=== PATIENT | female | born 1955 | race Caucasian/White ===

== ENCOUNTER → 2023-07-27 09:10 | Outpatient (REF) | payer MEDICARE, OTHER, SELFPAY ==
[2023-07-27 11:35] LABS: % Eosinophils 1.7 % (0-6); % Immature Granulocytes 0.4 % (0-0.5); % Lymphocytes 30.6 % (20.5-51.1); % Monocytes 4.8 % (1.7-9.3); % Neutrophils 61.5 % (42.2-75.2); Absolute Basophils 0.1 10^3/uL (0-0.2); Absolute Eosinophils 0.1 10^3/uL (0-0.7); Absolute Lymphocytes 2.6 10^3/uL (1.2-3.4); Absolute Monocytes 0.4 10^3/uL (0.1-0.6); Absolute Neutrophils 5.2 10^3/uL (1.4-6.5); Hematocrit 32.8 % (37.0-47.0); Hemoglobin 10.4 g/dL (12.0-16.0); Mean Corp Hgb Conc. 31.7 g/dL (33.0-37.0); Mean Corpuscular Hgb 28.1 pg (27.0-31.0); Mean Corpuscular Volume 88.6 fL (81.0-99.0); Mean Platelet Volume 10.5 fL (7.4-10.4); Nucleated Red Blood Cells % 0 %; Platelet Count 282 10^3/uL (130-400); Red Cell Dist. Width 19.9 % (11.5-14.5); White Blood Cell Count 8.4 10^3/uL (4.8-10.8)
[2023-07-27 11:48] LABS: Blood Urea Nitrogen 19 mg/dl (7-17); Calcium 8.6 mg/dl (8.4-10.2); Carbon Dioxide 24 mmol/L (22-30); Chloride 107 mmol/L (98-107); Glucose 100 mg/dl (70-99); Potassium 4.1 mmol/L (3.5-5.1); Sodium 139 mmol/L (135-145); eGFR > 60.00
== END ==
LOC: HWLAB 09:10
PROVIDERS: ATTENDING PHYSICIAN Emergency Medicine
DX: D64.9 Anemia, unspecified (principal)
CPT/HCPCS: 36415; 80048; 85025

== ENCOUNTER 2023-07-27 18:24 | Emergency (ER) | payer MEDICARE, OTHER, SELFPAY ==
[2023-07-27 18:32] VITALS: BP 139/85
[2023-07-27 19:08] LABS: % Eosinophils 2.4 % (0-6); % Immature Granulocytes 0.4 % (0-0.5); % Lymphocytes 29.9 % (20.5-51.1); % Monocytes 4.9 % (1.7-9.3); % Neutrophils 61.4 % (42.2-75.2); Absolute Basophils 0.1 10^3/uL (0-0.2); Absolute Eosinophils 0.2 10^3/uL (0-0.7); Absolute Lymphocytes 2.5 10^3/uL (1.2-3.4); Absolute Monocytes 0.4 10^3/uL (0.1-0.6); Absolute Neutrophils 5.1 10^3/uL (1.4-6.5); Hemoglobin 11.1 g/dL (12.0-16.0); Mean Corp Hgb Conc. 31.7 g/dL (33.0-37.0); Mean Corpuscular Volume 88.4 fL (81.0-99.0); Mean Platelet Volume 10.3 fL (7.4-10.4); Nucleated Red Blood Cells % 0 %; Platelet Count 293 10^3/uL (130-400); Red Blood Cell Count 3.96 10^6/uL (4.20-5.40); Red Cell Dist. Width 19.9 % (11.5-14.5); White Blood Cell Count 8.4 10^3/uL (4.8-10.8)
[2023-07-27 19:19] LABS: INR 0.93; PT 12.5 Sec (11.4-14.6)
[2023-07-27 19:50] LABS: Troponin I < 0.012 ng/ml
[2023-07-27 20:48] LABS: ALT (SGPT) 15 U/L (0-35); AST (SGOT) 19 U/L (14-36); Alkaline Phosphatase 84 U/L (38-126); Blood Urea Nitrogen 17 mg/dl (7-17); Calcium 8.6 mg/dl (8.4-10.2); Carbon Dioxide 23 mmol/L (22-30); Chloride 109 mmol/L (98-107); Glucose 119 mg/dl (70-99); Potassium 3.9 mmol/L (3.5-5.1); Sodium 140 mmol/L (135-145); Total Bilirubin 0.6 mg/dl (0.2-1.3); Total Protein 6.6 g/dl (6.3-8.2); eGFR > 60.00
[2023-07-27 22:48] VITALS: BP 143/78
--- NOTE | 2023-07-27 22:56 | ED.GENMED ---
Addendum entered and electronically signed by Kaylene Jones PA-C 07/28/23 10:48:
pt called saying th elissaaler was not covered but pharmacist said breo was
pt has appt with pcp tomorrow
encouraged to let them make the decision about theinhaler but pt was requesting the breo filled by me, i did not see this patient
because of short term f/u i felt comfortable givin gthe inhaler script but warned pt to ask her pcp.
Original Note:
History of Present Illness
<ELISHA Griffith - Last Filed: 07/27/23 23:33>
General
Chief Complaint: Cardiac Symptoms
Source: patient
Exam Limitations: none
Time Seen by Provider: 07/27/23 22:37
Nursing documentation reviewed up to this point in time: agreed with
Travel History
Have you had any contact with someone who has COVID-19?: No
Do you have any symptoms of coronavirus? Fever > 100 degrees, chills, cough, shortness of breath, sore throat, loss of taste or smell, muscle aches, or headache?: No
History of Present Illness
History of Present Illness:
This is a 67 year old female with a history of symptomatic anemia, GERD, R hip arthroplasty, and gastric erosions, who presents to the ED c/o SOB x 1.5 weeks. Pt states she was discharged from the hospital 1 week ago for which she was treated for
symptomatic anemia. Pt states the shortness of breath began soon after she was discharged. She states it is only present during exertion, specifically when she walks and she would describe it as moderate-severe in severity. She denies any shortness
of breath at rest. Pt also states she is having 'stabbing' chest pain since this morning which has been intermittent. She rates it an 8/10 in severity and has been drinking warm water to help. She denies any radiation of the pain to her arm or jaw.
Pt states she has had previous episodes of this pain in the past, usually when she is at rest, but it usually resolves on its own. Pt also adds her right hip pain is significant and is constantly present. She describes the pain as achy and it
radiates down to her knee. It has limited her mobility and she uses a walker to walk. She was taking oxycodone, which she finished 4-5 days ago, but states that did not help with her pain. She last saw her orthopedic 1 month ago and has an
appointment scheduled on 08/25/23. Pt has been taking tylenol and using lidocaine patches, but neither have helped with the pain. She denies any n/v, fever, TEIXEIRA, dizziness, lightheadedness, cough, abdominal pain, leg swelling, or reflux.
Pt denies any tobacco, alcohol, or drug use.
Past History
<ELISHA Griffith - Last Filed: 07/27/23 23:33>
Past History
ED Past Medical History: COPD, GERD, Hypercholesterolemia, Psychiatric (Anxiety, Depression) and Other (IBS, Diverticulosis, Back and neck pain, Sciatica, Chronic Bronchitis, Hemorrhoids)
ED Past Surgical History: (X 2), Gynecological (Hysterectomy) and Orthopedic (Left knee replacement, Right hip replacement); Negative Appendectomy or Cholecystectomy
Patient has exhibited threatening behavior?: No
Social History
Tobacco: Non-smoker
Alcohol: None
Drug: None
Personal:
Living: alone
Employment: Employed
Family History
Family History: Other (Mother with pancreatic cancer)
Review of Systems
<ELISHA Griffith - Last Filed: 07/27/23 23:33>
Review of Systems
Allergies reviewed?: Yes
Constitutional: Reports no symptoms; Denies fever
Respiratory: Reports trouble breathing; Denies cough
Cardiac: Reports chest pain; Denies diaphoresis
ABD/GI: Denies abdominal pain, nausea, vomiting, diarrhea or constipated
: Reports no symptoms
Musculoskeletal: Reports muscle pain and muscle stiffness; Denies edema
Skin: Reports no symptoms
Neurological: Reports no symptoms; Denies dizzy or headache
Phy Exam
<ELISHA Griffith - Last Filed: 07/27/23 23:33>
General Physical Exam
General Presentation: moderate distress
General age: appears stated age
General Skin: warm and dry
General Habitus: normal
General Mental: alert
General Hydration: appears well hydrated
ENT Exam
ENT Exam: EOMI and pharynx normal
Cardiovascular Exam
Cardiovascular Exam: regular rate/rhythm, no edema, no gallop and no murmur
Heart Sounds: normal
Pulmonary Exam
Pulmonary Exam: lungs clear, no respiratory distress, no rales, no crackles, no rhonchi, no wheezing and no cough
Oxygen Status: room air
Cough: no cough
Gastrointestinal Exam
Gastrointestinal Exam: normal bowel sounds, soft, non distended and tender (epigastric)
Neurological Exam
Neurological Exam: alert, oriented x3 and speech normal
Musculoskeletal Exam
Musculoskeletal Exam: no edema and other (R hip tenderness)
Skin Exam
Skin Exam: normal color, warm/dry and no rash
Psychiatric Exam
Psychiatric Exam: normal mood/affect
Course
<ELISHA Griffith - Last Filed: 07/27/23 23:33>
Orders/Labs/Results
Orders:
Orders
07/27/23 18:33
EKG [Electrocardiogram (*1)] Urgent
Reason for Study: Chest Pain
CR Chest - 2 Views Urgent
Comment:
Reason For Exam: chest pain
07/27/23 18:34
EKG- Treatment ONCE
07/27/23 18:50
Complete Blood Count/With Diff Urgent
Comprehensive Metabolic Panel Urgent
Prothrombin Time Urgent
Troponin I Urgent
07/27/23 23:25
D-Dimer Urgent
07/27/23 23:37
Gabapentin [Neurontin] 300 mg PO NOW STA
Oxycodone/Acetaminophen [Percocet 5/325] 1 tablet PO NOW STA
07/28/23 00:12
CT Chest Pe Study Urgent
Comment:
Reason For Exam: BOONE, elevated d-dimer
Abnormal Lab Results
07/27/23 07/27/23
18:50 23:25
RBC 3.96 L 10^6/uL
(4.20-5.40)
Hgb 11.1 L g/dL
(12.0-16.0)
Hct 35.0 L %
(37.0-47.0)
MCHC 31.7 L g/dL
(33.0-37.0)
RDW 19.9 H %
(11.5-14.5)
D-Dimer 0.97 H ug/mlFEU
(0.00-0.50)
Chloride 109 H mmol/L
(98-107)
Glucose 119 H mg/dl
(70-99)
07/27/23 18:50
07/27/23 18:50
Vital Signs
Initial and Last Documented VS:
Initial Vital Signs
Temp Pulse Resp BP Pulse Ox
98.5 F 93 17 139/85 99
07/27/23 18:32 07/27/23 18:32 07/27/23 18:32 07/27/23 18:32 07/27/23 18:32
Last Documented Vital Signs
Temp Pulse Resp BP Pulse Ox
98.5 F 70 14 142/82 95
07/27/23 18:32 07/28/23 01:00 07/28/23 01:00 07/28/23 00:00 07/28/23 01:00
<Brittany Pyle DO - Last Filed: 07/28/23 01:19>
Orders/Labs/Results
Orders:
Orders
07/27/23 18:33
EKG [Electrocardiogram (*1)] Urgent
Reason for Study: Chest Pain
CR Chest - 2 Views Urgent
Comment:
Reason For Exam: chest pain
07/27/23 18:34
EKG- Treatment ONCE
07/27/23 18:50
Complete Blood Count/With Diff Urgent
Comprehensive Metabolic Panel Urgent
Prothrombin Time Urgent
Troponin I Urgent
07/27/23 23:25
D-Dimer Urgent
07/27/23 23:37
Gabapentin [Neurontin] 300 mg PO NOW STA
Oxycodone/Acetaminophen [Percocet 5/325] 1 tablet PO NOW STA
07/28/23 00:12
CT Chest Pe Study Urgent
Comment:
Reason For Exam: BOONE, elevated d-dimer
Abnormal Lab Results
07/27/23 07/27/23
18:50 23:25
RBC 3.96 L 10^6/uL
(4.20-5.40)
Hgb 11.1 L g/dL
(12.0-16.0)
Hct 35.0 L %
(37.0-47.0)
MCHC 31.7 L g/dL
(33.0-37.0)
RDW 19.9 H %
(11.5-14.5)
D-Dimer 0.97 H ug/mlFEU
(0.00-0.50)
Chloride 109 H mmol/L
(98-107)
Glucose 119 H mg/dl
(70-99)
07/27/23 18:50
07/27/23 18:50
Vital Signs
Initial and Last Documented VS:
Initial Vital Signs
Temp Pulse Resp BP Pulse Ox
98.5 F 93 17 139/85 99
07/27/23 18:32 07/27/23 18:32 07/27/23 18:32 07/27/23 18:32 07/27/23 18:32
Last Documented Vital Signs
Temp Pulse Resp BP Pulse Ox
98.5 F 70 14 142/82 95
07/27/23 18:32 07/28/23 01:00 07/28/23 01:00 07/28/23 00:00 07/28/23 01:00
<Brittany Pyle DO - Last Filed: 07/28/23 01:19>
*Radiology
Radiology exam reviewed: radiology read reviewed
*Pulse Oximetry
Patient hypoxic: no
*EKG
Interpreted by ED Provider?: Yes
Interpretation: normal
Comparison EKG: no changes (Unchanged from previous save her sinus tachycardia has resolved. 1 unifocal PVC is new.)
Rate: normal
Rhythm: sinus
[place]: left axis deviation
Interval: normal interval
QRS Pattern: normal QRS
Ischemia: no ischemia
*Heavy Forging Machine Operator Interpretation
Rate: normal
Interpretation: normal
Rhythm: sinus
*Critical Care Note
Total Time (30-74mins, 75-104mins- exclusive of procedures): Not Applicable
ED Attending Note
<ELISHA Griffith - Last Filed: 07/27/23 23:33>
-
Portions of this chart may have been created with voice recognition software.� Occasional wrong word or��sound alike� substitutions may have occurred due to the inherent limitations of voice recognition software.
<Brittany Pyle DO - Last Filed: 07/28/23 01:19>
ED Attending Note
Patient seen and examined by attending physician: Yes
I performed the substantive portion of visit, reviewed & personally made and approve the management plan that is documented in note by myself or KATEY.: Yes
I performed a history and physical exam of patient and discussed management with resident, I reviewed resident's note and agree with documented findings and plan of care.: Yes
ED Attending Note:
This is a 67-year-old woman who resides at home. She has history of chronic right hip pain, right hip arthroplasty April 2023, lumbar spine DJD. Right hip pain has persisted despite total hip replacement in April. She follows with pain
management, Dr. Powers with next appointment scheduled for next week. She states no improvement in pain despite 2 epidural steroid injections last month. She continues to follow with orthopedics and has an appointment with August 23 for second
opinion. She had been receiving prescriptions for oxycodone as well as hydromorphone throughout April and May with last prescription for 10-day course June 21. Thereafter she had been taking a fair amount of ibuprofen for right hip pain
and was admitted to this hospital July 15 until July 18 for treatment of symptomatic anemia�acute blood loss anemia superimposed on chronic iron deficiency anemia with initial hemoglobin of 6.7. She was transfused with 2 units of packed red
blood cells and hemoglobin improved to 9.9 on day of discharge.
Upper endoscopy showed nonbleeding gastric erosions as well as hiatal hernia and was recommended twice daily Protonix as well as to avoid NSAIDs as well as aspirin.
She was evaluated by orthopedics due to ongoing persistent right hip pain and at this point it is unclear if pain is hip in nature versus referred from upper lumbar foraminal stenosis.
She was discharged on lidocaine patches as well as Tylenol and a short course of oxycodone 5 mg which she completed 4 days ago.
Patient returns tonight with complaints of persistent dyspnea on exertion, unchanged despite 2 units of packed red blood cells. She has not had a cough nor fever nor chills. She also notes intermittent sharp stabbing lower substernal chest pain
that began this morning and has been intermittent throughout the day. Chest pain is worse and only noted when she is sitting. She has no chest pain when she is up and about.
She continues to require walker for ambulation and continues with home health nursing care from [facility] along with home PT and OT.
She denies lower leg pain or swelling. She denies nausea nor vomiting, diarrhea or constipation. Denies black or tarry stools. She denies dizziness nor lightheadedness.
She is scheduled for an IV iron infusion at employment program representative office August 03.
She is requesting something for pain and inquiring if IV iron can be transfused here in the ED.
67-year-old woman appears her stated age, awake and alert, exhibits a somewhat blunted affect but overall in no apparent distress. Respirations are easy nonlabored. Vital signs within normal limits. Pulse ox 99% on room air.
HEENT: Anicteric, conjunctiva are pink.
Neck supple, nontender, no JVD.
Heart is regular rate and rhythm. No murmur no rub.
Lungs are clear to auscultation, no rales or rhonchi no wheezing. No respiratory distress.
Abdomen is soft and nontender.
Extremities: Mild tenderness about the right hip. Mildly restricted range of motion right hip related to pain. There is no crepitus, no soft tissue swelling. No tenderness to the thigh nor knee nor lower leg. Peripheral pulses are full and
equal. No peripheral edema nor calf tenderness.
Skin is warm and dry, normal color, no rash. Good turgor.
Neuro: Awake alert and oriented x 3. No focal neurodeficits.
Differential diagnosis includes symptomatic anemia, ACS, GERD, pneumonia, PE, CHF, pleural effusion.
Labs reveal improvement in hemoglobin down to 11.1, near normalized. Normal Red cell indices.
Chemistries are unremarkable.
Troponin is negative.
Chest x-ray is unremarkable showing clear lung north, normal heart size, no pneumonia nor evidence of fluid overload. No pleural effusion.
EKG shows normal sinus rhythm, left axis deviation, 1 unifocal PVC, no acute ST-T wave abnormalities. When compared to EKG from July 14, 2023, sinus tachycardia has resolved. 1 unifocal PVC is new compared to previous otherwise similar and
unchanged.
With ongoing chest pain throughout the day, unremarkable EKG and normal troponin, ACS is unlikely. It is reassuring that chest discomfort is brief in nature and only noted when she is sitting which I suspect may be GERD related, hiatal hernia
related. Will consider Carafate if chest pain returns.
Ongoing dyspnea with exertion does not appear to be symptomatic anemia as hemoglobin has improved to 11.1. With normal indices no indication for urgent/emergent IV iron.
There is still some concern for potential PE versus chronic deconditioning thus will check D-dimer.
Patient has had chronic right hip pain, follows with orthopedics as well as pain management. Although reports no improvement with narcotics she has been receiving recurrent prescriptions for narcotics.
I have recommended gabapentin but patient states this had already been tried, ineffective and was discontinued approximately 2 months ago. Nonetheless we will give a one-time dose tonight along with a one-time dose of oxycodone. Going forward
however recommend she follow-up with pain management regarding her chronic pain issues.
07/28/2023 0109 AM
D-dimer mildly elevated thus CT of the chest/PE study performed which shows no PE. No aneurysm nor dissection. There is note of moderate hiatal hernia. Cholelithiasis without cholecystitis.
Incidental 4 mm right lower lobe pulmonary nodule as well as moderate central lobar emphysema.
Patient has successfully ambulated to and from the bathroom and does note mild dyspnea but no chest pain, ambulating well without complaints of increased hip pain.
As CAT scan shows element of emphysema would recommend trial of a daily, maintenance LABA/ICS.
Patient admits to remote history of smoking.
Recommend follow-up with PCP as well as follow-up with various specialist as already scheduled.
Discharge Plan
Departure
Patient Disposition: Home (Routine Discharge)
Date of Disposition: 07/28/23
Time of Disposition: 01:14
Patient with high blood pressure during this ER visit?: No
Condition: Good
Discharge Problem:
Dyspnea on exertion, Chronic hip pain after total replacement of right hip joint, Hiatal hernia with gastroesophageal reflux
Instructions: Chronic obstructive pulmonary disease (COPD), Chronic Pain (DC), Hiatal Hernia (DC)
Prescriptions:
New
budesonide-formoterol [Symbicort] 160-4.5 mcg/actuation HFA aerosol inhaler
1 puff inhalation BID Qty: 10.2 0RF
Rx Instructions:
rinse mouth after use
No Action
clonidine HCl 0.1 MG tablet
0.1 mg PO BID
simvastatin 40 mg Tablet
40 mg PO HS
zolpidem [Ambien] 5 mg Tablet
5 mg PO HS PRN (Reason: Sleep)
Patient Comments:
07/15/2023, pt. filled this med. on 07/07/2023 for 30 tablets according to PDMP.
aripiprazole [Abilify] 5 mg Tablet
5 mg PO DAILY
magnesium hydroxide [Milk of Magnesia] 400 mg/5 mL Suspension
30 ml PO DAILY PRN (Reason: constipation)
acetaminophen [Pain Relief ES (acetaminophen)] 500 mg Tablet
1,000 mg PO TID Qty: 90 0RF
lidocaine 4 % Adhesive Patch,Medicated
1 patch topical DAILY Qty: 10 0RF
oxycodone 5 mg Tablet
5 mg PO Q4HPRN PRN (Reason: moderate pain) Qty: 20 0RF
polyethylene glycol 3350 17 gram/dose powder
17 g PO DAILY Qty: 510 0RF
pantoprazole 40 MG tablet,delayed release (DR/EC)
40 mg PO BID Qty: 60 0RF
Referrals:
Giselle Swan MD [Family Provider] - Call in 1-3 days for appt
Interventions
Interventions:
*General Assessment Last Done: 07/27/23 18:33
*ED COVID-19 Vaccine History Last Done: 07/27/23 18:33
ED- Pulmonary Assessment Last Done: 07/27/23 23:29
ED- Cardiac Assessment Last Done: 07/27/23 23:29
[2023-07-27 23:00] VITALS: BP 138/87
[2023-07-27 23:47] LABS: D-Dimer 0.97 ug/mlFEU (0.00-0.50)
[2023-07-27] MEDS: NEURONTIN 300 MG PO (23:48)
[2023-07-27] MEDS: PERCOCET 5/325 1 TABLET PO (23:48)
[2023-07-28] VITALS: BP 142/82
[2023-07-28 01:14] VITALS: BP 147/98
== END 2023-07-28 01:22 | disposition home or self-care (01) ==
LOC: EMR 18:24
PROVIDERS: Emergency Medicine; EMERGENCY PHYSICIAN Emergency Medicine; FAMILY PHYSICIAN Emergency Medicine
DX: R06.09 Other forms of dyspnea (principal); R91.1 Solitary pulmonary nodule; K21.9 Gastro-esophageal reflux disease without esophagitis; K44.9 Diaphragmatic hernia without obstruction or gangrene; J44.9 Chronic obstructive pulmonary disease, unspecified; G89.29 Other chronic pain; Z96.641 Presence of right artificial hip joint
CPT/HCPCS: 99285; 71046; 71275; 80048; 80053; 84484; 85025; 85379; 85610; 93005; Q9967

== ENCOUNTER → 2023-08-10 14:26 | Outpatient (REF) | payer MEDICARE, OTHER, SELFPAY ==
[2023-08-10 14:36] LABS: % Basophils 0.7 % (0-2); % Eosinophils 2.8 % (0-6); % Immature Granulocytes 0.1 % (0-0.5); % Lymphocytes 18.6 % (20.5-51.1); % Monocytes 4.8 % (1.7-9.3); Absolute Basophils 0.1 10^3/uL (0-0.2); Absolute Eosinophils 0.3 10^3/uL (0-0.7); Absolute Lymphocytes 1.7 10^3/uL (1.2-3.4); Absolute Monocytes 0.4 10^3/uL (0.1-0.6); Absolute Neutrophils 6.6 10^3/uL (1.4-6.5); Hematocrit 33.2 % (37.0-47.0); Hemoglobin 10.5 g/dL (12.0-16.0); Mean Corp Hgb Conc. 31.6 g/dL (33.0-37.0); Mean Corpuscular Volume 88.5 fL (81.0-99.0); Mean Platelet Volume 9.8 fL (7.4-10.4); Platelet Count 303 10^3/uL (130-400); Red Blood Cell Count 3.75 10^6/uL (4.20-5.40); Red Cell Dist. Width 19.2 % (11.5-14.5)
== END ==
LOC: OIDL 14:26
PROVIDERS: ATTENDING PHYSICIAN Internal Medicine Hematology & Oncology
DX: D50.9 Iron deficiency anemia, unspecified (principal)
CPT/HCPCS: 85025

== ENCOUNTER → 2023-08-19 07:13 | Outpatient (REF) | payer MEDICARE, OTHER, SELFPAY | LOC: MRI 07:13 | PROVIDERS: ATTENDING PHYSICIAN Physical Medicine & Rehabilitation; FAMILY PHYSICIAN Emergency Medicine | DX: M54.16 Radiculopathy, lumbar region (principal); M25.551 Pain in right hip; Z96.641 Presence of right artificial hip joint | CPT/HCPCS: 73721 ==

== ENCOUNTER → 2023-08-31 12:06 | Outpatient (REF) | payer MEDICARE, OTHER, SELFPAY ==
[2023-08-31 16:38] LABS: % Basophils 0.7 % (0-2); % Eosinophils 0.5 % (0-6); % Immature Granulocytes 0.4 % (0-0.5); % Lymphocytes 13.2 % (20.5-51.1); % Monocytes 3.7 % (1.7-9.3); % Neutrophils 81.5 % (42.2-75.2); Absolute Basophils 0.1 10^3/uL (0-0.2); Absolute Lymphocytes 1.1 10^3/uL (1.2-3.4); Absolute Monocytes 0.3 10^3/uL (0.1-0.6); Absolute Neutrophils 6.6 10^3/uL (1.4-6.5); Hematocrit 37.3 % (37.0-47.0); Hemoglobin 12.2 g/dL (12.0-16.0); Mean Corp Hgb Conc. 32.7 g/dL (33.0-37.0); Mean Corpuscular Hgb 28.9 pg (27.0-31.0); Mean Corpuscular Volume 88.4 fL (81.0-99.0); Mean Platelet Volume 10.3 fL (7.4-10.4); Nucleated Red Blood Cells % 0 %; Platelet Count 270 10^3/uL (130-400); Red Blood Cell Count 4.22 10^6/uL (4.20-5.40); Red Cell Dist. Width 19.7 % (11.5-14.5); White Blood Cell Count 8.1 10^3/uL (4.8-10.8)
[2023-08-31 16:41] LABS: Erythrocyte Sed Rate 16 mm/hour (0-20)
[2023-08-31 16:47] LABS: C-Reactive Protein < 5.00 mg/L (0.0-10.00)
== END ==
LOC: HWLAB 12:06
PROVIDERS: ATTENDING PHYSICIAN Orthopaedic Surgery Adult Reconstructive Orthopaedic Surgery; FAMILY PHYSICIAN Emergency Medicine; REFERRING PHYSICIAN Physical Medicine & Rehabilitation
DX: M25.551 Pain in right hip (principal); Z96.641 Presence of right artificial hip joint
CPT/HCPCS: 36415; 85025; 85652; 86140

== ENCOUNTER → 2023-10-07 11:59 | Outpatient (REF) | payer MEDICARE, OTHER, SELFPAY ==
[2023-10-07 15:33] LABS: % Basophils 0.6 % (0-2); % Immature Granulocytes 0.3 % (0-0.5); % Lymphocytes 21.8 % (20.5-51.1); % Monocytes 7.5 % (1.7-9.3); % Neutrophils 66.8 % (42.2-75.2); Absolute Eosinophils 0.2 10^3/uL (0-0.7); Absolute Lymphocytes 1.6 10^3/uL (1.2-3.4); Absolute Monocytes 0.5 10^3/uL (0.1-0.6); Absolute Neutrophils 4.8 10^3/uL (1.4-6.5); Hematocrit 29.9 % (37.0-47.0); Hemoglobin 9.9 g/dL (12.0-16.0); Mean Corp Hgb Conc. 33.1 g/dL (33.0-37.0); Mean Corpuscular Hgb 30.1 pg (27.0-31.0); Mean Corpuscular Volume 90.9 fL (81.0-99.0); Mean Platelet Volume 10.3 fL (7.4-10.4); Nucleated Red Blood Cells % 0 %; Platelet Count 257 10^3/uL (130-400); Red Blood Cell Count 3.29 10^6/uL (4.20-5.40); Red Cell Dist. Width 16.8 % (11.5-14.5); White Blood Cell Count 7.1 10^3/uL (4.8-10.8)
[2023-10-07 15:44] LABS: ALT (SGPT) < 10 U/L (0-35); AST (SGOT) 16 U/L (14-36); Albumin 3.7 g/dl (3.5-5.0); Alkaline Phosphatase 76 U/L (38-126); Blood Urea Nitrogen 14 mg/dl (7-17); Calcium 9.1 mg/dl (8.4-10.2); Carbon Dioxide 26 mmol/L (22-30); Chloride 104 mmol/L (98-107); Glucose 91 mg/dl (70-99); Iron 43 ug/dl (37-170); Magnesium 2.1 mg/dl (1.6-2.3); Potassium 4.5 mmol/L (3.5-5.1); Sodium 136 mmol/L (135-145); Total Bilirubin 0.7 mg/dl (0.2-1.3); Total Protein 6.2 g/dl (6.3-8.2); eGFR > 60.00
[2023-10-07 15:55] LABS: Percent Saturation 14 % (20-50); Total Iron Binding Capacity 307 ug/dl (265-497)
[2023-10-07 16:15] LABS: TSH Reflex To Free T4 1.48 uIU/ml (0.47-4.68)
[2023-10-07 16:20] LABS: Ferritin 19.1 ng/ml (11.1-264.0)
[2023-10-08 12:15] LABS: Intact PTH 49.6 pg/ml (13.6-85.8)
== END ==
LOC: HWLAB 11:59
PROVIDERS: ATTENDING PHYSICIAN Internal Medicine Hematology & Oncology; FAMILY PHYSICIAN Emergency Medicine
DX: R53.83 Other fatigue (principal); E83.42 Hypomagnesemia; E83.51 Hypocalcemia; E87.6 Hypokalemia; D64.9 Anemia, unspecified; M25.551 Pain in right hip; K25.3 Acute gastric ulcer without hemorrhage or perforation; D50.9 Iron deficiency anemia, unspecified; G47.00 Insomnia, unspecified
CPT/HCPCS: 36415; 80053; 82306; 82728; 83540; 83550; 83735; 83970; 84155; 84165; 84443; 85025

== ENCOUNTER → 2023-10-13 13:36 | Outpatient (REF) | payer MEDICARE, OTHER, SELFPAY | LOC: HWRAD 13:36 | PROVIDERS: ATTENDING PHYSICIAN Psychiatry & Neurology Neurology; FAMILY PHYSICIAN Emergency Medicine | DX: R60.0 Localized edema (principal) | CPT/HCPCS: 93971 ==

== ENCOUNTER → 2023-10-20 14:18 | Outpatient (REF) | payer MEDICARE, OTHER, SELFPAY ==
[2023-10-20 14:21] LABS: % Basophils 0.6 % (0-2); % Eosinophils 1.7 % (0-6); % Immature Granulocytes 0.3 % (0-0.5); % Lymphocytes 21.8 % (20.5-51.1); % Neutrophils 69.6 % (42.2-75.2); Absolute Eosinophils 0.1 10^3/uL (0-0.7); Absolute Lymphocytes 1.5 10^3/uL (1.2-3.4); Absolute Monocytes 0.4 10^3/uL (0.1-0.6); Absolute Neutrophils 4.9 10^3/uL (1.4-6.5); Hematocrit 35.6 % (37.0-47.0); Hemoglobin 11.5 g/dL (12.0-16.0); Mean Corp Hgb Conc. 32.3 g/dL (33.0-37.0); Mean Corpuscular Hgb 29.3 pg (27.0-31.0); Mean Corpuscular Volume 90.6 fL (81.0-99.0); Mean Platelet Volume 9.7 fL (7.4-10.4); Platelet Count 320 10^3/uL (130-400); Red Blood Cell Count 3.93 10^6/uL (4.20-5.40); Red Cell Dist. Width 15.6 % (11.5-14.5)
[2023-10-20 15:21] LABS: Vitamin D, 25-OH*** 29.2 ng/mL (30-80)
== END ==
LOC: OIDL 14:18
PROVIDERS: ATTENDING PHYSICIAN Internal Medicine Hematology & Oncology
DX: D50.9 Iron deficiency anemia, unspecified (principal); E55.9 Vitamin D deficiency, unspecified
CPT/HCPCS: 82306; 85025

== ENCOUNTER → 2023-10-27 15:53 | Outpatient (REF) | payer MEDICARE, OTHER, SELFPAY ==
[2023-10-27 14:59] LABS: % Basophils 0.6 % (0-2); % Eosinophils 1.6 % (0-6); % Lymphocytes 17.7 % (20.5-51.1); % Monocytes 5.4 % (1.7-9.3); % Neutrophils 74.7 % (42.2-75.2); Absolute Basophils 0.1 10^3/uL (0-0.2); Absolute Eosinophils 0.1 10^3/uL (0-0.7); Absolute Lymphocytes 1.4 10^3/uL (1.2-3.4); Absolute Monocytes 0.4 10^3/uL (0.1-0.6); Absolute Neutrophils 5.8 10^3/uL (1.4-6.5); Hematocrit 36.2 % (37.0-47.0); Hemoglobin 11.9 g/dL (12.0-16.0); Mean Corp Hgb Conc. 32.9 g/dL (33.0-37.0); Mean Corpuscular Hgb 30.2 pg (27.0-31.0); Mean Corpuscular Volume 91.9 fL (81.0-99.0); Mean Platelet Volume 9.9 fL (7.4-10.4); Platelet Count 283 10^3/uL (130-400); Red Blood Cell Count 3.94 10^6/uL (4.20-5.40); Red Cell Dist. Width 16.6 % (11.5-14.5); White Blood Cell Count 7.7 10^3/uL (4.8-10.8)
[2023-10-27 15:28] LABS: Phosphorus 5.1 mg/dl (2.5-4.5)
== END ==
LOC: OIDL 15:53
PROVIDERS: ATTENDING PHYSICIAN Internal Medicine Hematology & Oncology
DX: D50.9 Iron deficiency anemia, unspecified (principal)
CPT/HCPCS: 84100; 85025

== ENCOUNTER → 2023-11-10 10:37 | Outpatient (REF) | payer MEDICARE, OTHER, SELFPAY | LOC: PAVMRI 10:37 | PROVIDERS: ATTENDING PHYSICIAN Psychiatry & Neurology Neurology; FAMILY PHYSICIAN Emergency Medicine | DX: M54.10 Radiculopathy, site unspecified (principal) | CPT/HCPCS: 72158; A9575 ==

== ENCOUNTER → 2023-11-23 06:25 | Day surgery (SDC) | payer MEDICARE, OTHER, SELFPAY | LOC: GI 06:25 | PROVIDERS: ATTENDING PHYSICIAN Internal Medicine Gastroenterology | DX: K25.0 Acute gastric ulcer with hemorrhage (principal); K21.00 Gastro-esophageal reflux disease with esophagitis, without bleeding; K44.9 Diaphragmatic hernia without obstruction or gangrene; K31.89 Other diseases of stomach and duodenum; D50.9 Iron deficiency anemia, unspecified; R12 Heartburn | CPT/HCPCS: 43239; 88305; 88342 ==

== ENCOUNTER → 2023-12-09 11:15 | Outpatient (REF) | payer MEDICARE, OTHER, SELFPAY ==
[2023-12-09 16:27] LABS: % Basophils 0.5 % (0-2); % Eosinophils 1.8 % (0-6); % Immature Granulocytes 0.3 % (0-0.5); % Lymphocytes 18.2 % (20.5-51.1); % Monocytes 5.4 % (1.7-9.3); % Neutrophils 73.8 % (42.2-75.2); Absolute Eosinophils 0.1 10^3/uL (0-0.7); Absolute Lymphocytes 1.4 10^3/uL (1.2-3.4); Absolute Monocytes 0.4 10^3/uL (0.1-0.6); Absolute Neutrophils 5.8 10^3/uL (1.4-6.5); Hematocrit 41.1 % (37.0-47.0); Hemoglobin 14.1 g/dL (12.0-16.0); Mean Corp Hgb Conc. 34.3 g/dL (33.0-37.0); Mean Corpuscular Hgb 31.6 pg (27.0-31.0); Mean Corpuscular Volume 92.2 fL (81.0-99.0); Mean Platelet Volume 10.2 fL (7.4-10.4); Nucleated Red Blood Cells % 0 %; Platelet Count 216 10^3/uL (130-400); Red Blood Cell Count 4.46 10^6/uL (4.20-5.40); Red Cell Dist. Width 15.5 % (11.5-14.5); White Blood Cell Count 7.8 10^3/uL (4.8-10.8)
[2023-12-09 16:36] LABS: Iron 95 ug/dl (37-170)
[2023-12-09 16:46] LABS: Percent Saturation 35 % (20-50); Total Iron Binding Capacity 267 ug/dl (265-497)
== END ==
LOC: HWLAB 11:15
PROVIDERS: ATTENDING PHYSICIAN Internal Medicine Hematology & Oncology; FAMILY PHYSICIAN Emergency Medicine
DX: D50.9 Iron deficiency anemia, unspecified (principal); K25.3 Acute gastric ulcer without hemorrhage or perforation; M25.551 Pain in right hip; D64.9 Anemia, unspecified; E55.9 Vitamin D deficiency, unspecified
CPT/HCPCS: 36415; 82728; 83540; 83550; 85025

== ENCOUNTER → 2023-12-20 14:37 | Outpatient (REF) | payer MEDICARE, OTHER, SELFPAY | LOC: PAVMRI 14:37 | PROVIDERS: ATTENDING PHYSICIAN Orthopaedic Surgery Adult Reconstructive Orthopaedic Surgery; FAMILY PHYSICIAN Emergency Medicine | DX: Z96.641 Presence of right artificial hip joint (principal) | CPT/HCPCS: 73721 ==

== ENCOUNTER → 2024-02-14 10:46 | Outpatient (REF) | payer MEDICARE, OTHER, SELFPAY ==
[2024-02-14 15:29] LABS: % Basophils 0.7 % (0-2); % Eosinophils 1.1 % (0-6); % Immature Granulocytes 0.5 % (0-0.5); % Lymphocytes 17.7 % (20.5-51.1); % Monocytes 5.5 % (1.7-9.3); % Neutrophils 74.5 % (42.2-75.2); Absolute Basophils 0.1 10^3/uL (0-0.2); Absolute Eosinophils 0.1 10^3/uL (0-0.7); Absolute Lymphocytes 1.5 10^3/uL (1.2-3.4); Absolute Monocytes 0.5 10^3/uL (0.1-0.6); Absolute Neutrophils 6.1 10^3/uL (1.4-6.5); Hematocrit 37.2 % (37.0-47.0); Hemoglobin 13.1 g/dL (12.0-16.0); Mean Corp Hgb Conc. 35.2 g/dL (33.0-37.0); Mean Corpuscular Hgb 33.2 pg (27.0-31.0); Mean Corpuscular Volume 94.4 fL (81.0-99.0); Mean Platelet Volume 10.3 fL (7.4-10.4); Nucleated Red Blood Cells % 0 %; Platelet Count 236 10^3/uL (130-400); Red Blood Cell Count 3.94 10^6/uL (4.20-5.40); Red Cell Dist. Width 15.1 % (11.5-14.5); White Blood Cell Count 8.2 10^3/uL (4.8-10.8)
[2024-02-14 15:41] LABS: Erythrocyte Sed Rate 26 mm/hour (0-20)
== END ==
LOC: HWLAB 10:46
PROVIDERS: ATTENDING PHYSICIAN Orthopaedic Surgery; FAMILY PHYSICIAN Emergency Medicine
DX: M25.551 Pain in right hip (principal)
CPT/HCPCS: 36415; 85025; 85652; 86140

== ENCOUNTER → 2024-02-16 13:55 | Outpatient (REF) | payer MEDICARE, OTHER, SELFPAY ==
[2024-02-16 14:23] VITALS: BP 106/78; BP_SYST 77
[2024-02-16 17:50] LABS: Body Fluid Mononuclear 94 %; Body Fluid Polymorphonuclear 6 %; Body Fluid WBC 59 /CUMM
[2024-02-16 17:52] LABS: Body Fluid Second Tech FB
== END ==
LOC: RADI 13:55
PROVIDERS: ATTENDING PHYSICIAN Orthopaedic Surgery; FAMILY PHYSICIAN Emergency Medicine
DX: M25.551 Pain in right hip (principal); G89.29 Other chronic pain
CPT/HCPCS: 20610; 77002; 89051

== ENCOUNTER 2024-02-21 16:01 | Emergency (ER) | payer MEDICARE, OTHER, SELFPAY ==
[2024-02-21 16:07] VITALS: BP 170/92
--- NOTE | 2024-02-21 17:00 | ED.GENMED ---
History of Present Illness
General
Chief Complaint: Breathing Problem
Source: patient
Exam Limitations: none
Time Seen by Provider: 02/21/24 16:42
Nursing documentation reviewed up to this point in time: agreed with
History of Present Illness
History of Present Illness:
68-year-old female with past medical history of GERD anxiety depression presenting to the emergency department with concerns of being COVID-positive for the past 3 days with mild upper respiratory congestion cough and shortness of breath starting
Tuesday, 3 days ago. Some ongoing symptoms today felt some mild shortness of breath today as well. Denies any chest pain nausea vomiting or fevers today.
Past History
Past History
ED Past Medical History: COPD, GERD, Hypercholesterolemia, Psychiatric (Anxiety, Depression) and Other (IBS, Diverticulosis, Back and neck pain, Sciatica, Chronic Bronchitis, Hemorrhoids)
ED Past Surgical History: (X 2), Gynecological (Hysterectomy) and Orthopedic (Left knee replacement, Right hip replacement); Negative Appendectomy or Cholecystectomy
Patient has exhibited threatening behavior?: No
Social History
Tobacco: Non-smoker
Alcohol: None
Drug: None
Personal:
Living: alone
Employment: Employed
Family History
Family History: Other (Mother with pancreatic cancer)
Review of Systems
Review of Systems
Allergies reviewed?: Yes
All Other Systems: ROS reviewed and negative except as documented in HPI and ROS
Phy Exam
Physical Exam
Physical Exam:
GENERAL: Alert , in no apparent distress
EYE: pupils equal and reactive
NECK: Supple, no significant adenopathy.
ENT: o/p clr, mmm.
CARDIAC: Regular rate and rhythm .
LUNGS: Clear breath sounds bilaterally, no acute respiratory distress, no wheezes/rales/rhonchi
ABDOMEN: Soft, without focal tenderness, no r/g, no cvat
NEUROLOGICAL: Alert and oriented, no focal neuro deficits
SKIN: Warm and dry, skin intact.
MUSCULOSKELETAL: No edema, well perfused.
PSYCH: Normal and appropriate interaction.
Scores
Heart Failure Risk
Heart Failure Risk Score: Not Applicable
Course
Orders/Labs/Results
Orders:
Orders
02/21/24 16:10
CR Chest - 2 Views Urgent
Comment:
Reason For Exam: cough/congestion
02/21/24 17:07
CBC/With Diff [Complete Blood Count/With Diff] Urgent
CMP [Comprehensive Metabolic Panel] Urgent
Abnormal Lab Results
02/21/24
17:07
RBC 4.11 L 10^6/uL
(4.20-5.40)
MCH 32.4 H pg
(27.0-31.0)
RDW 14.6 H %
(11.5-14.5)
Glucose 105 H mg/dl
(70-99)
02/21/24 17:07
02/21/24 17:07
Vital Signs
Initial and Last Documented VS:
Initial Vital Signs
Temp Pulse Resp BP Pulse Ox
98.3 F 87 18 170/92 95
02/21/24 16:07 02/21/24 16:07 02/21/24 16:07 02/21/24 16:07 02/21/24 16:07
Last Documented Vital Signs
Temp Pulse Resp BP Pulse Ox
98.3 F 74 18 170/92 95
02/21/24 16:07 02/21/24 17:10 02/21/24 16:07 02/21/24 16:07 02/21/24 17:11
MDM/Problems Addressed
MDM/Problems Addressed:
68-year-old female well-appearing on exam diagnosed with COVID 3 days ago also mild shortness of breath today. No headache chest. Upon arrival blood pressure elevated otherwise vital signs are normal. Lungs are clear. Chest x-ray without signs
of pneumonia. The patient does claims that she had previous anemia issues labs were obtained without acute abnormalities. Patient generally well-appearing throughout ER stay stable for outpatient management return precautions given.
*Critical Care Note
Total Time (30-74mins, 75-104mins- exclusive of procedures): Not Applicable
ED Attending Note
-
Portions of this chart may have been created with voice recognition software.� Occasional wrong word or��sound alike� substitutions may have occurred due to the inherent limitations of voice recognition software.
Discharge Plan
Departure
Patient Disposition: Home (Routine Discharge)
Date of Disposition: 02/21/24
Time of Disposition: 18:21
Patient with high blood pressure during this ER visit?: No
Condition: Good
Covid-19: Not Applicable
Discharge Problem:
COVID-19
Instructions: COVID-19 ED
Prescriptions:
No Action
clonidine HCl 0.1 MG tablet
0.1 mg PO BID
simvastatin 40 mg Tablet
40 mg PO HS
zolpidem [Ambien] 5 mg Tablet
5 mg PO HS PRN (Reason: Sleep)
Patient Comments:
07/15/2023, pt. filled this med. on 07/07/2023 for 30 tablets according to PDMP.
aripiprazole [Abilify] 5 mg Tablet
5 mg PO DAILY
magnesium hydroxide [Milk of Magnesia] 400 mg/5 mL Suspension
30 ml PO DAILY PRN (Reason: constipation)
acetaminophen [Pain Relief ES (acetaminophen)] 500 mg Tablet
1,000 mg PO TID Qty: 90 0RF
lidocaine 4 % Adhesive Patch,Medicated
1 patch topical DAILY Qty: 10 0RF
oxycodone 5 mg Tablet
5 mg PO Q4HPRN PRN (Reason: moderate pain) Qty: 20 0RF
polyethylene glycol 3350 17 gram/dose powder
17 g PO DAILY Qty: 510 0RF
pantoprazole 40 MG tablet,delayed release (DR/EC)
40 mg PO BID Qty: 60 0RF
budesonide-formoterol [Symbicort] 160-4.5 mcg/actuation HFA aerosol inhaler
1 puff inhalation BID Qty: 10.2 0RF
Rx Instructions:
rinse mouth after use
fluticasone furoate-vilanterol [Breo Ellipta] 100-25 mcg/dose blister with device
1 inh inhalation DAILY Qty: 60 0RF
Referrals:
Giselle Swan MD [Family Provider] -
Activity Restrictions/Additional Instructions:
You came to the emergency department today with concerns of shortness of breath associated with COVID. Here get a normal chest x-ray and labs. Please follow-up closely as an outpatient and otherwise hopefully symptoms will improve over the next
few days. Return to the emergency department any worsening, new or concerning symptoms.
Interventions
Interventions:
*Risk Screen - Suicide Last Done: 02/21/24 16:07
*General Assessment Last Done: 02/21/24 16:07
*Neglect/Abuse Screening Last Done: 02/21/24 16:07
ED- Fall Risk Assessment Last Done: 02/21/24 17:11
*ED COVID-19 Vaccine History Last Done: 02/21/24 17:11
ED- Cardiac Assessment Last Done: 02/21/24 17:11
ED- Pulmonary Assessment Last Done: 02/21/24 17:11
Discharge Date and Time
Print Language: [id number]
[2024-02-21 17:09] VITALS: BMI 31.9
[2024-02-21 17:15] LABS: % Basophils 0.6 % (0-2); % Eosinophils 4.2 % (0-6); % Immature Granulocytes 0.2 % (0-0.5); % Monocytes 7.1 % (1.7-9.3); % Neutrophils 56.9 % (42.2-75.2); Absolute Eosinophils 0.3 10^3/uL (0-0.7); Absolute Monocytes 0.5 10^3/uL (0.1-0.6); Absolute Neutrophils 3.8 10^3/uL (1.4-6.5); Hematocrit 38.3 % (37.0-47.0); Hemoglobin 13.3 g/dL (12.0-16.0); Mean Corp Hgb Conc. 34.7 g/dL (33.0-37.0); Mean Corpuscular Hgb 32.4 pg (27.0-31.0); Mean Corpuscular Volume 93.2 fL (81.0-99.0); Mean Platelet Volume 9.5 fL (7.4-10.4); Nucleated Red Blood Cells % 0 %; Platelet Count 277 10^3/uL (130-400); Red Blood Cell Count 4.11 10^6/uL (4.20-5.40); Red Cell Dist. Width 14.6 % (11.5-14.5); White Blood Cell Count 6.6 10^3/uL (4.8-10.8)
[2024-02-21 17:28] LABS: ALT (SGPT) 14 U/L (0-35); AST (SGOT) 23 U/L (14-36); Albumin 4.3 g/dl (3.5-5.0); Alkaline Phosphatase 75 U/L (38-126); Blood Urea Nitrogen 14 mg/dl (7-17); Calcium 9.9 mg/dl (8.4-10.2); Carbon Dioxide 27 mmol/L (22-30); Chloride 105 mmol/L (98-107); Estimated Creatinine Clearance 84 ml/min; Glucose 105 mg/dl (70-99); Sodium 142 mmol/L (135-145); Total Bilirubin 0.8 mg/dl (0.2-1.3); Total Protein 6.7 g/dl (6.3-8.2); eGFR > 60.00
== END 2024-02-21 18:39 | disposition home or self-care (01) ==
LOC: EMR 16:01
PROVIDERS: Physician Assistant; EMERGENCY PHYSICIAN Student in an Organized Health Care Education/Training Program; FAMILY PHYSICIAN Emergency Medicine
DX: U07.1 COVID-19 (principal); F41.9 Anxiety disorder, unspecified; F32.A Depression, unspecified; K21.9 Gastro-esophageal reflux disease without esophagitis; J44.9 Chronic obstructive pulmonary disease, unspecified; E78.00 Pure hypercholesterolemia, unspecified; K58.9 Irritable bowel syndrome, unspecified; K57.90 Diverticulosis of intestine, part unspecified, without perforation or abscess without bleeding; M54.40 Lumbago with sciatica, unspecified side; Z96.652 Presence of left artificial knee joint; Z96.641 Presence of right artificial hip joint; Z88.8 Allergy status to other drugs, medicaments and biological substances
CPT/HCPCS: 99283; 71046; 80053; 85025

== ENCOUNTER → 2024-04-05 11:47 | Outpatient (REF) | payer MEDICARE, OTHER, SELFPAY ==
[2024-04-05 15:21] LABS: ALT (SGPT) 16 U/L (0-35); AST (SGOT) 20 U/L (14-36); Albumin 4.3 g/dl (3.5-5.0); Alkaline Phosphatase 68 U/L (38-126); Blood Urea Nitrogen 20 mg/dl (7-17); Calcium 9.2 mg/dl (8.4-10.2); Carbon Dioxide 29 mmol/L (22-30); Chloride 104 mmol/L (98-107); Direct Bilirubin 0.2 mg/dl (0.0-0.4); Glucose 95 mg/dl (70-99); Lipase 101 U/L (23-300); Potassium 4.5 mmol/L (3.5-5.1); Sodium 142 mmol/L (135-145); Total Bilirubin 0.7 mg/dl (0.2-1.3); eGFR > 60.00
[2024-04-05 15:31] LABS: Total Protein 6.8 g/dl (6.3-8.2)
== END ==
LOC: HWLAB 11:47
PROVIDERS: ATTENDING PHYSICIAN Internal Medicine Gastroenterology; FAMILY PHYSICIAN Emergency Medicine
DX: R10.13 Epigastric pain (principal)
CPT/HCPCS: 36415; 80048; 80076; 83690

== ENCOUNTER 2024-04-23 15:15 | Inpatient (IN) | payer MEDICARE, OTHER, SELFPAY ==
[2024-04-23] VITALS (7 sets, daily range): BP systolic 92–167; BP diastolic 56–105; BMI 32.9; BMI 32.3
[2024-04-23 12:32] LABS: % Basophils 0.5 % (0-2); % Eosinophils 2.3 % (0-6); % Immature Granulocytes 0.5 % (0-0.5); % Lymphocytes 21.8 % (20.5-51.1); % Monocytes 6.1 % (1.7-9.3); % Neutrophils 68.8 % (42.2-75.2); Absolute Eosinophils 0.2 10^3/uL (0-0.7); Absolute Lymphocytes 1.4 10^3/uL (1.2-3.4); Absolute Monocytes 0.4 10^3/uL (0.1-0.6); Absolute Neutrophils 4.4 10^3/uL (1.4-6.5); Hematocrit 28.6 % (37.0-47.0); Hemoglobin 9.9 g/dL (12.0-16.0); Mean Corp Hgb Conc. 34.6 g/dL (33.0-37.0); Mean Corpuscular Hgb 32.2 pg (27.0-31.0); Mean Corpuscular Volume 93.2 fL (81.0-99.0); Mean Platelet Volume 9.8 fL (7.4-10.4); Nucleated Red Blood Cells % 0 %; Platelet Count 220 10^3/uL (130-400); Red Blood Cell Count 3.07 10^6/uL (4.20-5.40); Red Cell Dist. Width 15.3 % (11.5-14.5); White Blood Cell Count 6.4 10^3/uL (4.8-10.8)
[2024-04-23 12:44] LABS: ALT (SGPT) 15 U/L (0-35); AST (SGOT) 23 U/L (14-36); Albumin 3.8 g/dl (3.5-5.0); Alkaline Phosphatase 62 U/L (38-126); Blood Urea Nitrogen 14 mg/dl (7-17); Carbon Dioxide 24 mmol/L (22-30); Chloride 105 mmol/L (98-107); Estimated Creatinine Clearance 86 ml/min; Glucose 106 mg/dl (70-99); Lipase 71 U/L (23-300); Potassium 3.8 mmol/L (3.5-5.1); Sodium 141 mmol/L (135-145); Total Bilirubin 0.6 mg/dl (0.2-1.3); Total Protein 6.1 g/dl (6.3-8.2); eGFR > 60.00
[2024-04-23] MEDS: PROTONIX IV 40 MG IV ×2 (14:24→20:10)
--- NOTE | 2024-04-23 14:24 | ED.GENMED ---
History of Present Illness
General
Chief Complaint: Abdominal Symptoms
Time Seen by Provider: 04/23/24 12:00
History of Present Illness
History of Present Illness:
68-year-old female presents to the emergency department for evaluation of generalized fatigue and exertional shortness of breath, she also notes black stools for the past several days. She has a history of peptic ulcer disease and last required
blood transfusions earlier this year due to iron deficiency/blood loss anemia. She does not take any antiplatelets or anticoagulants. She has been compliant with her twice daily PPIs. She also notes having intractable right-sided abdominal pain
radiating toward the back for the past 3 weeks worse after food intake. She is following with her GI team and has known cholelithiasis. No fevers or chills
Past History
Past History
ED Past Medical History: COPD, GERD, Hypercholesterolemia, Psychiatric (Anxiety, Depression) and Other (IBS, Diverticulosis, Back and neck pain, Sciatica, Chronic Bronchitis, Hemorrhoids)
ED Past Surgical History: (X 2), Gynecological (Hysterectomy) and Orthopedic (Left knee replacement, Right hip replacement); Negative Appendectomy or Cholecystectomy
Patient has exhibited threatening behavior?: No
Social History
Tobacco: Non-smoker
Alcohol: None
Drug: None
Personal:
Living: alone
Employment: Employed
Family History
Family History: Other (Mother with pancreatic cancer)
Review of Systems
Review of Systems
Allergies reviewed?: Yes
All Other Systems: ROS reviewed and negative except as documented in HPI and ROS
Phy Exam
Physical Exam
Physical Exam:
GEN: Well appearing, NAD, WDWN
HEENT: Oral mucosa moist, no scleral icterus
Cardiac: Regular rate and rhythm, no murmur
Lung: No respiratory distress, no tachypnea
Abdomen: Soft, marked right upper quadrant tenderness with equivocal Melgar sign, no rigidity
Rectal: Patient declined
MSK: No gross deformity or injuries
Skin: Good color, no pallor or jaundice, no rashes
Neuro: AO x3, moves all extremities freely
Psych: Calm, cooperative
Course
Orders/Labs/Results
Orders:
Orders
04/23/24 12:07
US Abdomen Complete/Upper Urgent
Comment:
Reason For Exam: RUQ pain
04/23/24 12:23
Complete Blood Count/With Diff Urgent
Comprehensive Metabolic Panel Urgent
Lipase Urgent
04/23/24 13:46
Pantoprazole [Protonix IV] 40 mg IV NOW STA
04/23/24 14:03
Type+Screen Urgent
BBK Wristband Number:
04/23/24 14:49
Admit/Transfer Patient As Directed
Co-Sign Provider:
Level of Care: Inpatient admission
Assign to:: Telemetry
Physician / Group: lizy
Diagnosis: peptic ulcer, anemia
Reason for Telemetry: Arrhythmia
Date to Stop Telemetry: 04/26/24
Time to Stop Telemetry: 11:00
Reason for Hospitalization: peptic ulcer, anemia
Expected length of stay greater than two midnights?: Yes
ELOS- Estimated Length of Stay in days: 2
I certify the patient meets the requirements for IP care: Yes
04/23/24 14:50
Code Status As Directed
Resuscitation Status: Do not resuscitate
Reached after discussion with pt or family/Healthcare POA: Yes
PRN Pain Medication Management As Directed
May give lesser potent ordered pain med per pt: Yes
preference::
Protocol:: Medication orders for pain may be administered in a
manner that supports deferring to patient preference
when the pt is:
- Requesting an ordered lesser potent pain medication.
Least to most potent pain medications are defined
as: acetaminophen < NSAID < tramadol < opioids
(morphine, oxycodone, hydromorphone).
- Requesting a lesser dose of the same medication IF
ORDERED.
- Requesting a less intrusive route of administration
if both routes are prescribed by the provider (PO <
IV).
04/23/24 14:51
DNR Bracelet Application ONCE
04/26/24 11:00
DC Protocol for Telemetry ONCE
Abnormal Lab Results
04/23/24
12:23
RBC 3.07 L 10^6/uL
(4.20-5.40)
Hgb 9.9 L g/dL
(12.0-16.0)
Hct 28.6 L %
(37.0-47.0)
MCH 32.2 H pg
(27.0-31.0)
RDW 15.3 H %
(11.5-14.5)
Glucose 106 H mg/dl
(70-99)
Total Protein 6.1 L g/dl
(6.3-8.2)
04/23/24 12:23
04/23/24 12:23
Vital Signs
Initial and Last Documented VS:
Initial Vital Signs
Temp Pulse Resp BP Pulse Ox
98.3 F 94 16 152/105 95
04/23/24 11:54 04/23/24 11:54 04/23/24 11:54 04/23/24 11:54 04/23/24 11:54
Last Documented Vital Signs
Temp Pulse Resp BP Pulse Ox
98.3 F 95 16 129/81 95
04/23/24 11:54 04/23/24 12:04 04/23/24 11:54 04/23/24 14:00 04/23/24 12:04
MDM/Problems Addressed
MDM/Problems Addressed:
Patient likely has recurrent iron deficiency anemia due to known gastric ulcer disease, certainly could have acute bleeding ulcer evidenced by melanotic stool. Her hemoglobin dropped greater than 3 g in the past 2 months. Additionally she has
significant right upper quadrant pain with a positive sonographic Melgar sign on ultrasound and may require surgery consultation for cholecystectomy if this is deemed appropriate. Will do not see that she needs a PPI drip given that she is
hemodynamically stable thus will give bolus dose of IV pantoprazole, will admit to the hospitalist service for further management
*Critical Care Note
Total Time (30-74mins, 75-104mins- exclusive of procedures): Not Applicable
ED Attending Note
-
Portions of this chart may have been created with voice recognition software.� Occasional wrong word or��sound alike� substitutions may have occurred due to the inherent limitations of voice recognition software.
Discharge Plan
Departure
Patient Disposition: Admit
Date of Disposition: 04/23/24
Time of Disposition: 14:27
Admit to: Med/Surg
Presentation/result/management discussed w/ accepting MD/DO: Hospitalist
Discharge Problem:
Acute upper GI bleed, Biliary colic, Acute cholecystitis
Interventions
Interventions:
*Risk Screen - Suicide Last Done: 04/23/24 11:56
*General Assessment Last Done: 04/23/24 12:04
*Neglect/Abuse Screening Last Done: 04/23/24 11:56
ED- Fall Risk Assessment Last Done: 04/23/24 12:04
*ED COVID-19 Vaccine History Last Done: 04/23/24 11:56
EJ-Aaudxv-Vuqchtnkbz Assessment Last Done: 04/23/24 12:04
--- NOTE | 2024-04-23 14:53 | HPS.HSE ---
Family Physician
-
Family Physician: Giselle Swan MD
Chief Complaint
-
black stool, abdominal pain
History of Present Illness
68-year-old female past medical history of peptic ulcer disease, cholelithiasis, GERD, COPD, hypercholesterolemia, anxiety/depression, IBS, diverticulosis, sciatica, presenting with generalized fatigue and exertional shortness of breath. She has
had black loose stools for the past several weeks. Patient has a history of peptic ulcer disease and required blood transfusions earlier this year for iron deficiency and blood loss anemia. She denies any antiplatelets or anticoagulants. She has
been compliant PPI. Denies chest pain or dizziness.
She has been having generalized abdominal pain associate with bloating particular in the right upper quadrant for the past few weeks. She feels persistently nauseous denies vomiting.
She had a left ear infection a few weeks ago and she was treated with antibiotic which she completed. She is taking naproxen twice a day for the past 2 weeks. She still has some left ear fullness but symptoms have improved. She denies alcohol
use. She denies smoking.
Medical History
Past Medical History
Past Medical History: Reports Other (peptic ulcer disease, cholelithiasis, GERD, COPD, hypercholesterolemia, anxiety/depression, IBS, diverticulosis, sciatica,)
Past Surgical History: Reports Other ( (X 2), Gynecological (Hysterectomy) and Orthopedic (Left knee replacement, Right hip replacement); Negative Appendectomy or Cholecystectomy)
Social History
Tobacco: Non-smoker
Alcohol: None
Drug: None
Family History
Family History: Not pertinent
Allergies / Home Medications
Allergies reflects when Allergies were last updated in [facility].
Home Medications with original date entered in [facility] [employer]
Allergy/Medication List:
Allergies
Allergy/AdvReac Type Severity Reaction Status Date / Time
sulfur [From Sulfur-8] Allergy sulfa-swell Verified 04/23/24 11:56
ing,rash
Home Medications
clonidine HCl 0.1 mg tablet 0.1 mg PO BID Blood pressure 12/02/21
simvastatin 40 mg tablet 40 mg PO HS High Cholesterol 07/15/23
acetaminophen 500 mg tablet (Pain Relief Extra Strength (acetaminophen)) 500 mg PO BID [pain] ear infection 04/23/24
cholecalciferol (vitamin D3) 25 mcg (1,000 unit) tablet (Vitamin D3) 25 mcg PO DAILY Supplement 04/23/24
naproxen sodium 220 mg tablet (Aleve) 220 mg PO BID [pain] ear infection 04/23/24
propranolol 40 mg tablet 40 mg PO BID Blood Pressure 04/23/24
trazodone 100 mg tablet 200 mg PO HS Sleep 04/23/24
Review of Systems
-
History Source: Patient
A 12 point ROS was completed and negative except as noted: Yes
Constitutional: Reports No Symptoms
EENT: Reports No Symptoms
Respiratory: Reports No Symptoms
Cardiac: Reports No Symptoms
Abdomen/GI: Reports See HPI
: Reports No Symptoms
Musculoskeletal: Reports No Symptoms
Skin: Reports No Symptoms
Neurological: Reports No Symptoms
Endocrine: Reports No Symptoms
Hematologic/Lymphatic: Reports No Symptoms
Psych: Reports No Symptoms
Physical Exam
Vital Signs
Vital Signs
Temp Pulse Resp BP Pulse Ox
98.3 F 95 16 129/81 95
04/23/24 11:54 04/23/24 12:04 04/23/24 11:54 04/23/24 14:00 04/23/24 12:04
Physical Exam
General: Well Developed, Well Nourished and No Apparent Distress
HEENT: NormoCephalic, Moist mucous membranes and Atraumatic
Respiratory: Clear
Cardiac: S1/S2 and Regular Rhythm; No Murmur or Rub
GI: Soft, Non Distended, Normal Bowel Sounds and Tender (diffusely tender ); No Organomegaly
Rectal: Deferred by Provider
Musculoskeletal: No Clubbing, No Cyanosis and No Edema
Skin: No Rash
Neuro: Nonfocal/grossly intact
Laboratory Results
-
04/23/24 12:23
04/23/24 12:23
Laboratory Results
Total Bilirubin 0.6 mg/dl (0.2-1.3) 04/23/24 12:23
AST 23 U/L (14-36) 04/23/24 12:23
ALT 15 U/L (0-35) 04/23/24 12:23
Alkaline Phosphatase 62 U/L (38-126) 04/23/24 12:23
Lipase 71 U/L (23-300) 04/23/24 12:23
Data Reviewed
-
Lab Data: Labs Reviewed by me
Old Records: Reviewed
Impression/Plan
-
IMPRESSION:
PLAN:
# Abdominal pain/symptomatic anemia secondary to likely recurrent peptic ulcer secondary to naproxen
-Hemoglobin dropped from 13.3-9.9 in the span of 2 months
-Abdominal ultrasound shows cholelithiasis
--Type and screen sent
-Protonix drip
-GI consulted
-N.p.o.
-Check iron studies, B12 and folate
# Positive Melgar sign on ultrasound
-No classic signs of cholecystitis on examination
-General Surgery consulted
# Recent left middle ear infection
-Completed antibiotic
-Stop naproxen
History of cholelithiasis
GERD/hiatal hernia
History of IBS
COPD
Hypercholesterolemia
-Continue statin
Essential hypertension
-Continue propranolol
-Continue clonidine
Anxiety/depression
-Continue trazodone
Insomnia
Diverticulosis
History of sciatica
DNR/DNI
DVT prophylaxis-SCDs
N.p.o.
--- NOTE | 2024-04-23 15:22 | CON.GS ---
Addendum entered and electronically signed by Marko Yoder MD 04/23/24 17:49:
I saw and examined the patient independently.
The Cheerleading Coach's note was reviewed and I agree with the note, assessment and plan except where noted below.
Comment: This is a 68-year-old female with a history of C-sections x 2, hysterectomy/BSO, hiatal hernia and known peptic ulcer disease on PPI who reports nausea and anorexia for the past 3 to 4 weeks. She has not also noted melena in her stools.
She presented for worsening abdominal pain in the right upper quadrant and was tender on exam. She underwent an ultrasound here which demonstrated cholelithiasis and a 'positive sonographic Melgar sign' but there was no other stigmata of
cholecystitis. Her LFTs are within normal limits and she has no leukocytosis.
While it is possible she has 2 overlapping conditions; acute cholecystitis and a bleeding duodenal/gastric ulcer I think the likelihood is quite low. I suspect her positive sonographic Melgar sign is from potentially an ulcer itself.
Will obtain a CT abdomen pelvis with p.o. and IV contrast. I believe this will allow us to ascertain if there is an active ulcer/bleed and assess if there is any Maty-cholecystic inflammation.
N.p.o., IV fluids, IV antibiotics
Type and screen, transfuse hemoglobin as needed per primary
General surgery will continue to follow
Plan of care discussed with patient and daughter over the phone both agreeable to plan of care.
Original Note:
Medical History
-
Chief Complaint: Nausea
History of Present Illness:
Ms Feng is a 68 yo female with a h/o c-sections x2, hysterectomy/bso, hiatal hernia and PUD on PPI who reports nausea and anorexia over the past 3-4 weeks. She notes that she has a BM once every 2 days and they have been black for the past
month. She denies diarrhea or passage of gross blood or clots. She was recently placed on naproxen a few weeks ago for an ear problem but is not sure if this timing correlated with the onset of symptoms of nausea. She denies abdominal pain but the
RUQ is tender on exam. She reports sensation of 'bloating'. She denies fevers or chills. She denies vomiting and hematemesis. She has lost 4-5 lbs over the last month as she has been eating only small portions given the ongoing issues with nausea.
She reports that nothing made her nausea better or worse. She noted progressive SOB and fatigue causing her to present today for evaluation.
Past Medical History
Past Medical History: COPD, GERD (PUD), HTN, Hypercholesterolemia, Psychiatric (anxiety/depression) and Other (hiatal hernia, DDD with spinal stenosis)
Past Surgical History: (x2), Gynecological (vaginal hysterectomy/bso) and Orthopedic (Left TKR, Right THR)
Social History
Tobacco: Former Smoker
Alcohol: None
Family History
Family History: Early CAD (father)
Allergies / Home Medications
Allergy/AdvReac Type Severity Reaction Status Date / Time
sulfur [From Sulfur-8] Allergy sulfa-swell Verified 04/23/24 11:56
ing,rash
�Medication �Instructions �Recorded �Confirmed �Type
clonidine HCl 0.1 mg tablet 0.1 mg PO BID Blood pressure 12/02/21 04/23/24 History
simvastatin 40 mg tablet 40 mg PO HS High Cholesterol 07/15/23 04/23/24 History
acetaminophen 500 mg tablet (Pain 500 mg PO BID [pain] ear infection 04/23/24 04/23/24 History
Relief Extra Strength
(acetaminophen))
cholecalciferol (vitamin D3) 25 25 mcg PO DAILY Supplement 04/23/24 04/23/24 History
mcg (1,000 unit) tablet (Vitamin
D3)
naproxen sodium 220 mg tablet 220 mg PO BID [pain] ear infection 04/23/24 04/23/24 History
(Aleve)
propranolol 40 mg tablet 40 mg PO BID Blood Pressure 04/23/24 04/23/24 History
trazodone 100 mg tablet 200 mg PO HS Sleep 04/23/24 04/23/24 History
Review of Systems
-
History Source: Patient
All other systems: Negative unless noted
A 10 point review of systems was completed, and was negative except as per HPI.
Physical Exam
Vital Signs
Temp Pulse Resp BP Pulse Ox
98.3 F 95 16 129/81 95
04/23/24 11:54 04/23/24 12:04 04/23/24 11:54 04/23/24 14:00 04/23/24 12:04
04/22/24 04/23/24 04/24/24
06:59 06:59 06:59
Actual Weight 92.5 kg
Body Mass Index (BMI) 32.9
Lab Results
04/23/24 12:23
04/23/24 12:23
WBC 6.4 10^3/uL (4.8-10.8) 04/23/24 12:23
Hgb 9.9 g/dL (12.0-16.0) L 04/23/24 12:23
Hct 28.6 % (37.0-47.0) L 04/23/24 12:23
Plt Count 220 10^3/uL (130-400) 04/23/24 12:23
Abs Immat Gran (auto) 0.0 10^3/uL (0-0.05) 04/23/24 12:23
Neutrophils % 68.8 % (42.2-75.2) 04/23/24 12:23
Physical Exam
General: Well Developed and Well Nourished
HEENT: Moist Mucous Membranes
Respiratory: Non Labored Respirations
GI: Soft, Non Distended and Tender (RUQ)
Skin: Warm and Other (pale)
Neuro: Awake, Alert and AO x 3
Psych: Calm
Data Reviewed
-
Ultrasound: Image Personally Visualized and interpreted (cholelithiasis with +melgar's), Report Reviewed by me, Discussed with Physician and Discussed with Patient
Labs: Labs Reviewed by me, Discussed with Physician, Discussed with Nurse and Discussed with Patient
Assessment / Plan
-
Ms Feng is a 68 yo female with a h/o c-sections x2, hysterectomy/bso, hiatal hernia with ayse's lesions and PUD on PPI who reports nausea and anorexia over the past 3-4 weeks. She notes that she has a BM once every 2 days and they have been
black for the past month. She denies diarrhea or passage of gross blood or clots. Acute anemia present with recent h/o PUD and reported h/o melena. AFVSS. No Leukocytosis. US imaging with cholelithiasis with +melgar's sign. LFT's wnl. The RUQ is
tender on exam concerning for cholecystitis although may be secondary to ulcerative disease as well.
--Check CT abd/pelvis to better differentiate the source of her pain
--Continue NPO
--Start ABX for empiric coverage
--Analgesics/antiemetics
--GI consulted to follow
[2024-04-23 16:43] LABS: Iron 57 ug/dl (37-170)
[2024-04-23 16:52] LABS: Percent Saturation 17 % (20-50); Total Iron Binding Capacity 324 ug/dl (265-497)
[2024-04-23] MEDS: FLUSH (NSS) 2 FLUSH IV (17:00)
[2024-04-23] MEDS: ZOFRAN 4 MG IV (17:00)
[2024-04-23] MEDS: ULTRAM 25 MG PO (17:32)
[2024-04-23] MEDS: NSS 1000 IV (17:37)
[2024-04-23] MEDS: ZOSYN 50 IV ×2 (17:39→23:33)
--- NOTE | 2024-04-23 17:57 | CON.GI ---
Consultation
-
Date/Time Consultation Requested: 04/23/2024, 1605
Date/Time Consultation Performed: 04/23/2024, 1800
Requesting Provider: Dr. Shazia Arana
Performing Provider: Dr. Donta Ramirez
Reason for Consultation: Symptomatic anemia, hx of PUD 2/2 NSAIDs
Medical History
Chief Complaint / HPI
Chief Complaint: Black stools, abdominal pain
History of Present Illness:
Ms. Feng is a 68 y.o female with past medical history of GERD, COPD, IBS, diverticulosis, cholelithiasis, NSAID use and medium sized hiatal hernia with prior Joe's erosions who presented to the ED with symptomatic anemia.
Patient states dark stools over the past month however became progressively worse over the past two weeks. Denies any overtly bloody stools or blood clots. She has been compliant with her PPI but developed worsening abdominal pain with epigastric
and right upper quadrant discomfort along with nausea. No episodes of emesis. Otherwise, denies any sick contacts or recent/new medications. No fevers, chills or other constitutional symptoms. Does note she had a L ear infection where she was
treated with an antibiotic and was taking Naproxen BiD for the past two weeks. Given her worsening symptoms with fatigue and SOB she came to the ED for further evaluation.
Prior Endoscopic Hx:
EGD ([facility], heartburn) 11/23/2023- Impression:LA Grade A reflux esophagitis with no bleeding; Medium-sized hiatal hernia with Joe's erosion; Erythematous mucosa in the antrum though healed superficial ulcers. Biopsied; Normal examined duodenum.
Biopsied. Advised continued PPI 40 mg BiD and anemia likely related to Joe's erosions/hiatal hernia
EGD (DE[facility]) 07/18/2023- Impression: Normal esophagus, medium-sized HH, gastric erosions with no stigmata of recent bleeding (biopsied) and normal duodenum
Colonoscopy (screening) 12/07/2022- Impression: Diverticulosis in the sigmoid and descending colon, internal hemorrhoids, otherwise normal. Advised repeat colonoscopy in 10 yrs for screening purposes
EGD (heartburn) 12/07/2022- Impression: Normal esophagus, small HH, normal duodenum
In the ED, patient was afebrile and HD-stable. Labs notable for BUN 14 and Nursing Faculty 0.7. LFTs wnl with ALP 62 and T Bili 0.6. CBC with Hgb 9.9 (previously 13.3 back on 02/2024). An Abdominal US revealed cholelithiasis without GB wall thickening or
pericholecystic edema, however (+) Melgar's sign. Otherwise, no biliary ductal dilatation with CBD of 5 mm or choledocholithiasis. She was started on IV PPI gtt and general surgery was consulted given US findings given (+) Melgar sign. GI has been
consulted given acute drop in Hgb and concern for UGIB.
Past Medical History
Past Medical History: Other (peptic ulcer disease, cholelithiasis, GERD, COPD, hypercholesterolemia, anxiety/depression, IBS, diverticulosis, sciatica)
Past Surgical History: Other ( (X 2), Gynecological (Hysterectomy) and Orthopedic (Left knee replacement, Right hip replacement)
Social History
Tobacco: Non-Smoker
Alcohol: None
Drug: None
Family History
Family History: Reviewed & Not Pertinent
Allergies / Home Medications
Allergy/AdvReac Type Severity Reaction Status Date / Time
sulfur [From Sulfur-8] Allergy sulfa-swell Verified 04/23/24 11:56
ing,rash
�Medication �Instructions �Recorded
clonidine HCl 0.1 mg tablet 0.1 mg PO BID Blood pressure 12/02/21
simvastatin 40 mg tablet 40 mg PO HS High Cholesterol 07/15/23
acetaminophen 500 mg tablet (Pain 500 mg PO BID [pain] ear infection 04/23/24
Relief Extra Strength
(acetaminophen))
cholecalciferol (vitamin D3) 25 25 mcg PO DAILY Supplement 04/23/24
mcg (1,000 unit) tablet (Vitamin
D3)
naproxen sodium 220 mg tablet 220 mg PO BID [pain] ear infection 04/23/24
(Aleve)
propranolol 40 mg tablet 40 mg PO BID Blood Pressure 04/23/24
trazodone 100 mg tablet 200 mg PO HS Sleep 04/23/24
Review of Systems
-
All other systems: A 12 pt ROS was Negative except as stated above in HPI
Vital Signs
Temp Pulse Resp BP Pulse Ox
97.5 F 80 18 167/87 98
04/23/24 16:26 04/23/24 16:26 04/23/24 16:26 04/23/24 16:26 04/23/24 16:26
Physical Exam
Exam
General: Well Developed, Well Nourished and Other (Obese)
HEENT: Anicteric
Respiratory: Non Labored Respirations
Cardiac: S1/S2 and Regular Rhythm
GI: Soft and Tender (Mild to moderate tenderness in RUQ and epigastric region)
Skin: Dry
Neuro: AO x 3
Psych: Calm
Results
WBC 6.4 10^3/uL (4.8-10.8) 04/23/24 12:23
Hgb 9.9 g/dL (12.0-16.0) L 04/23/24 12:23
Hct 28.6 % (37.0-47.0) L 04/23/24 12:23
MCV 93.2 fL (81.0-99.0) 04/23/24 12:23
Plt Count 220 10^3/uL (130-400) 04/23/24 12:23
Absolute Neuts (auto) 4.4 10^3/uL (1.4-6.5) 04/23/24 12:23
Sodium 141 mmol/L (135-145) 04/23/24 12:23
Potassium 3.8 mmol/L (3.5-5.1) 04/23/24 12:23
Chloride 105 mmol/L (98-107) 04/23/24 12:23
Carbon Dioxide 24 mmol/L (22-30) 04/23/24 12:23
BUN 14 mg/dl (7-17) 04/23/24 12:23
Creatinine 0.7 mg/dL (0.6-1.0) 04/23/24 12:23
Calcium 9.0 mg/dl (8.4-10.2) 04/23/24 12:23
Total Bilirubin 0.6 mg/dl (0.2-1.3) 04/23/24 12:23
AST 23 U/L (14-36) 04/23/24 12:23
ALT 15 U/L (0-35) 04/23/24 12:23
Alkaline Phosphatase 62 U/L (38-126) 04/23/24 12:23
Lipase 71 U/L (23-300) 04/23/24 12:23
Diagnostic Image Results: As detailed above
Assessment / Plan
-
#Acute Blood Loss Anemia
#Symptomatic Anemia
#Melena #UGIB
#Hx of Joe's Erosions #Medium-sized HH
#Abdominal Pain
#Significant NSAID use
#(+) Melgar's Sign on US
Assessment: Ms. Feng is a 68 y.o female with past medical history of GERD, COPD, IBS, diverticulosis, obesity, cholelithiasis, NSAID use and medium sized hiatal hernia with prior Joe's erosions who presented to the ED with symptomatic anemia
and dark stools. Concern for melena in setting of recent NSAID use (2/2 Naproxen) over the past two weeks with subsequent acute drop in Hgb. Remains HD-stable with normal BUN. Etiology likely recurrent UGIB from either Joe's lesions or
NSAID-induced PUD. No concern for LGIB and previous colonoscopy 11/2022 was grossly normal except for left-sided diverticulosis. Found to have (+) Melgar's sign on US. Clinically, doubt cholecystitis or other biliary pathology given her
symptomatology, reassuring LFTs and overall presentation. General surgery has been consulted given this finding with plans to pursue a CT Abd/pelvis for further evaluation. Otherwise, patient remains HD-stable without melena since admission but
would benefit from EGD given suspected PUD.
Recommendations:
- Keep NPO
- Trend Hgb with serial CBC, transfuse for goal Hbg > 7.0
- IV PPI 40 mg BiD
- Started on IV abx as per surgery, will f/u CT Abd/pelvis
- Plan for EGD tomorrow, 04/24/2024. If evidence of Joe's lesions, would consider surgical referral for HH repair
- Discussed strict avoidance of all NSAIDs
- Rest of care per primary team
GI team will continue to follow.
Data Reviewed
-
Radiology: Image Personally Visualized and interpreted and Report Reviewed by me
Ultrasound: Image Personally Visualized and interpreted and Report Reviewed by me
Old Records: Reviewed
-
-
Thank you for consultation and allowing me to participate in the patient's care. Please call the [facility] consultant GI physician during the after hours with any questions or concerns.
[2024-04-23 17:58] LABS: Vitamin B12 308 pg/ml (239-931)
[2024-04-23] MEDS: CATAPRES 0.1 MG PO (20:08)
[2024-04-23] MEDS: INDERAL 40 MG PO (20:09)
[2024-04-23] MEDS: TYLENOL 500 MG PO (20:09)
[2024-04-23] MEDS: LIPITOR 20 MG PO (20:09)
[2024-04-23] MEDS: NSS (PRESERVATIVE FREE) 10 ML IV (20:09)
[2024-04-23] MEDS: DESYREL 200 MG PO (21:31)
[2024-04-24] VITALS (8 sets, daily range): BP systolic 93–113; BP diastolic 53–66; PULSE 62; O2SAT 92
[2024-04-24] MEDS: ZOFRAN 4 MG IV ×2 (03:28→17:14)
[2024-04-24] MEDS: ULTRAM 25 MG PO ×3 (03:34→17:14)
[2024-04-24] MEDS: ZOSYN 50 IV ×4 (05:32→23:52)
[2024-04-24] MEDS: NSS 1000 IV ×2 (07:25→23:54)
[2024-04-24 07:39] LABS: ALT (SGPT) 16 U/L (0-35); AST (SGOT) 20 U/L (14-36); Albumin 3.2 g/dl (3.5-5.0); Alkaline Phosphatase 52 U/L (38-126); Blood Urea Nitrogen 15 mg/dl (7-17); Calcium 8.6 mg/dl (8.4-10.2); Carbon Dioxide 29 mmol/L (22-30); Chloride 106 mmol/L (98-107); Estimated Creatinine Clearance 50 ml/min; Glucose 89 mg/dl (70-99); Potassium 4.2 mmol/L (3.5-5.1); Sodium 142 mmol/L (135-145); Total Bilirubin 0.8 mg/dl (0.2-1.3); Total Protein 5.2 g/dl (6.3-8.2)
[2024-04-24 07:41] LABS: % Basophils 0.7 % (0-2); % Eosinophils 3.4 % (0-6); % Immature Granulocytes 0.2 % (0-0.5); % Lymphocytes 27.7 % (20.5-51.1); % Monocytes 8.3 % (1.7-9.3); % Neutrophils 59.7 % (42.2-75.2); Absolute Eosinophils 0.2 10^3/uL (0-0.7); Absolute Lymphocytes 1.6 10^3/uL (1.2-3.4); Absolute Monocytes 0.5 10^3/uL (0.1-0.6); Absolute Neutrophils 3.5 10^3/uL (1.4-6.5); Hematocrit 26.8 % (37.0-47.0); Hemoglobin 8.8 g/dL (12.0-16.0); Mean Corp Hgb Conc. 32.8 g/dL (33.0-37.0); Mean Corpuscular Hgb 32.4 pg (27.0-31.0); Mean Corpuscular Volume 98.5 fL (81.0-99.0); Mean Platelet Volume 10.1 fL (7.4-10.4); Nucleated Red Blood Cells % 0 %; Platelet Count 242 10^3/uL (130-400); Red Blood Cell Count 2.72 10^6/uL (4.20-5.40); Red Cell Dist. Width 15.7 % (11.5-14.5); White Blood Cell Count 5.9 10^3/uL (4.8-10.8)
--- NOTE | 2024-04-24 08:03 | W.PN.GS2 ---
Today's Communication / Plan
-
-- GI consult noted, plan for EGD today
-- NPO, IVF
-- PPI Q12, hold all NSAIDs
-- Abx: soft for GI converge
-- CT abdomen/pelvis pending
Assessment / Plan
-
Patient is a 68 yo F p/w upper abdominal pain. Most likely gastritis, duodenitis, or ulcerative disease. Differential includes cholecystitis.
AVSS
Normal WBC, continued drift in Hb
GI consult noted. Plan for EGD this AM. Pending these findings would recommend CT of the abdomen and pelvis with oral and IV contrast. Continue with PPI, hold all NSAIDs.
-- GI consult noted, plan for EGD today
-- NPO, IVF
-- PPI Q12, hold all NSAIDs
-- Abx: soft for GI converge
-- CT abdomen/pelvis pending
Subjective Data
-
Date of Service: April 24, 2024
Continued epigastric and RUQ abdominal discomfort. Symptoms have been present for months. Constant and continuous. Radiation to the back. Associated bloating and melanotic stools. No clear association with fatty food intake. Symptoms were more
associated with recent use of NSAIDs for an ear infection. She has been on a twice daily PPI. No H2 lai or Carafate use. She has been using Tums. Afebrile.
Objective Data
-
Intake and Output
04/23/24 04/24/24 04/25/24
06:59 06:59 06:59
Intake Total 100 / 100
Balance 100 / 100
Intake:
Oral fluids 0 / 0
IV piggybacks 100 / 100
Other:
Number of approximated MODERATE 2
amounts of urine
Vital Signs
Temp Pulse Resp BP Pulse Ox
97.7 F 55 18 108/55 95
04/24/24 03:28 04/24/24 03:28 04/24/24 03:28 04/24/24 03:28 04/24/24 03:28
Lab Results
04/24/24 05:51
04/24/24 05:50
Calcium 8.6 mg/dl (8.4-10.2) 04/24/24 05:50
Total Bilirubin 0.8 mg/dl (0.2-1.3) 04/24/24 05:50
AST 20 U/L (14-36) 04/24/24 05:50
ALT 16 U/L (0-35) 04/24/24 05:50
Alkaline Phosphatase 52 U/L (38-126) 04/24/24 05:50
Total Protein 5.2 g/dl (6.3-8.2) L 04/24/24 05:50
Albumin 3.2 g/dl (3.5-5.0) L 04/24/24 05:50
Physical Exam
-
Gen: uncomfortable, NAD
Abd: soft, obese, tender in epigastrium and RUQ, no diffuse peritonitis
[2024-04-24] MEDS: TYLENOL 500 MG PO ×2 (08:08→21:24)
[2024-04-24] MEDS: NSS (PRESERVATIVE FREE) 10 ML IV ×2 (08:08→21:24)
[2024-04-24] MEDS: PROTONIX IV 40 MG IV ×2 (08:08→21:24)
[2024-04-24] MEDS: VITAMIN D3 (cholecalciferol) 25 MCG PO (08:09)
[2024-04-24 08:23] LABS: Hepatitis C Antibody Negative (Negative)
[2024-04-24] MEDS: INDERAL PO (10:32)
--- NOTE | 2024-04-24 12:44 | W.PN.HOSP.TC ---
Addendum entered and electronically signed by Greta Byers MD 04/24/24 15:15:
I saw and evaluated the patient independently. I reviewed the resident�s note and agree with findings and plan as documented by Dr. Fisher.
GENERAL: well developed, well nourished, female in no apparent distress
HEENT: NC/AT
HEART: regular rate and rhythm, +S1, +S2
LUNGS : clear to auscultation bilaterally
ABDOM: soft, tender RUQ and midepigastrium with guarding (pulls my hand away when palpating), nondistended, + bowel sounds
EXT: no cyanosis, clubbing, or edema
NEUROLOGIC: grossly intact
acute blood loss anemia likely due to Upper GI Bleed in the Setting of History of PUD--presented with melena--apprec GI, s/p EGD with small, linear, superficial esophageal ulcers--cont PPI BID--avoid NSAIDS- Hb 13.9 at last discharge in February
2023; 9.9 yesterday; 8.8 today. Follow H&H. Transfuse for Hb less than 7.
RUQ abdominal pain--likely due to symptomatic Cholelithiasis --no evidence of cholecystitis--await CT scan a/p--apprec surgery
DARYL - Likely in the setting of NSAID use- Discontinue NSAIDs- Continue to monitor CMP.
Essential HTN- Clonidine 0.1mg BID; only medication pt takes at home- Hold Propranolol; given this morning with SBP ~95. Pt states she does not normally take this medication at home.
HLD- Continue Atorvastatin.
Anxiety/Depression/Insomnia- Continue home dose Trazadone qhs.
DVT proph
code status -- FULL CODE
Original Note:
Today's Communication/Plan
-
.
Assessment / Plan
Assessment / Plan
1. Upper GI Bleed in the Setting of History of PUD
- Discontinue NSAIDs. Pain control with PRN Tramadol.
- GI consulted; EGD scheduled for today; follow up results.
- EGD (04/24): small, linear, superficial distal esophageal ulcers with no active bleed or stigmata of recent bleed. Likely source of dark stools and anemia.
- IV PPI; 40 mg BID for 8 weeks then once/day indefinitely.
- Hb 13.9 at last discharge in February 2024; 9.9 yesterday; 8.8 today. Follow H&H. Transfuse for Hb less than 7.
2. Cholelithiasis
- Abdomen US (04/23): Cholelithiasis. No sonographic evidence of cholecystitis.
- N.p.o.
- IVF
- CT Abdomen and Pelvis pending.
3. DARYL
- Likely in the setting of NSAID use.
- Discontinue NSAIDs.
- Continue to monitor CMP.
4. HTN
- Clonidine 0.1mg BID; only medication pt takes at home.
- Hold Propranolol; given this morning with SBP ~95. Pt states she does not normally take this medicaiton at home.
5. HLD
- Continue Atorvastatin.
6. Anxiety/Depression/Insomnia
- Continue home dose Trazadone qhs.
Anticipated Discharge: 24 - 48 hours
Subjective/Interval History
-
Date of Service: April 24, 2024
Patient denies change in condition since admission yesterday.
68-year-old female with past medical history of peptic ulcer disease, cholelithiasis, GERD who presented yesterday with generalized fatigue and exertional shortness of breath along with 4 weeks of melena. She has a history of peptic ulcer disease
and required blood transfusion in the past. She notes that she has had a chronic ear infection, and has been using NSAIDs over the past 2 weeks, even though she knew she shouldn't have.
Patient endorses generalized abdominal pain, worst in the epigastrium and right upper quadrant. Pain in the right upper quadrant radiates to the back. Patient describes the pain as a vague soreness. Patient also endorses bloating.
Objective Data
-
Labs:
Laboratory Results
04/24/24 04/24/24
05:50 05:51
WBC 5.9
Hgb 8.8 L
Hct 26.8 L
Plt Count 242
Sodium 142
Potassium 4.2
Chloride 106
Carbon Dioxide 29
BUN 15
Creatinine 1.2 H
Glucose 89
Calcium 8.6
Total Bilirubin 0.8
AST 20
ALT 16
Alkaline Phosphatase 52
Vital Signs:
Vital Signs
Temp Pulse Resp BP Pulse Ox
97.8 F 50 18 97/56 94
04/24/24 11:42 04/24/24 11:42 04/24/24 11:42 04/24/24 11:42 04/24/24 11:42
I&O
04/23/24 04/24/24 04/25/24
06:59 06:59 06:59
Intake Total 100 / 100
Balance 100 / 100
Review of Systems
-
History Source: Patient
Constitutional: Reports Fatigue and Other (No fever. )
EENT: Reports Other (Left sided ear pain, not related to admitting diagnosis. )
Respiratory: Reports Other (shortness of breath with exertion)
Cardiac: Reports No Symptoms
Abdomen/GI: Reports Abdominal Pain, Nausea and Other (no vomiting or diarrhea. )
Genitourinary: Reports No Symptoms
Skin: Reports No Symptoms
Neuro: Reports No Symptoms
Physical Exam
-
General: Well Developed, No Apparent Distress, Obese and Other (mildly uncomfortable)
HEENT: Normocephalic, Atraumatic and Other (sclera anicteric)
Respiratory: Clear to Auscultation
Cardiac: Regular Rhythm and S1/S2
GI: Soft, Nondistended and Tender (diffusely tender; worse in epigastrium, right upper quadrant. )
Rectal: Deferred by Provider
Musculoskeletal: No Cyanosis and No Edema
Skin: Warm and Dry
Neuro: Awake, Alert and Oriented
Psych: Calm
Data Reviewed
-
Ultrasound: Report Reviewed by me and Discussed with Patient
Labs: Labs Reviewed by me and Discussed with Patient
[2024-04-24] MEDS: OMNIPAQUE 50 ML PO (13:41)
--- NOTE | 2024-04-24 14:13 | CM ---
Patient seen at bedside with physicians. Patient states that she lives alone in a 2 story home. Patient PCP is Dr. Swan and she uses the [facility] in [place]. Patient has a walker at home and does not anticipate needs. Patient indicated that if
she needed to have surgery she would want to go to SNF as she does not have any support other than girlfriends. Patient for EGD today and CT scan. CM will continue to follow for discharge planning needs.
Plan; home with VN vs SNF pending functional/medical treatment plan
[2024-04-24] MEDS: CATAPRES PO ×2 (15:52→21:24)
[2024-04-24] MEDS: LIPITOR 20 MG PO (21:24)
[2024-04-24] MEDS: DESYREL 200 MG PO (21:24)
[2024-04-25 03:12] VITALS: BP 112/66
[2024-04-25] MEDS: ZOSYN 50 IV ×2 (05:13→11:57)
[2024-04-25 07:55] VITALS: BP 126/68
[2024-04-25 08:01] LABS: Hematocrit 26.3 % (37.0-47.0); Hemoglobin 8.7 g/dL (12.0-16.0); Mean Corp Hgb Conc. 33.1 g/dL (33.0-37.0); Mean Corpuscular Volume 96.7 fL (81.0-99.0); Mean Platelet Volume 9.7 fL (7.4-10.4); Platelet Count 226 10^3/uL (130-400); Red Blood Cell Count 2.72 10^6/uL (4.20-5.40); Red Cell Dist. Width 15.4 % (11.5-14.5); White Blood Cell Count 5.4 10^3/uL (4.8-10.8)
[2024-04-25] MEDS: PROTONIX IV 40 MG IV (08:30)
[2024-04-25] MEDS: NSS (PRESERVATIVE FREE) 10 ML IV (08:30)
[2024-04-25] MEDS: CATAPRES PO (08:31)
[2024-04-25] MEDS: TYLENOL 500 MG PO (08:31)
[2024-04-25] MEDS: VITAMIN D3 (cholecalciferol) 25 MCG PO (08:31)
[2024-04-25] MEDS: ULTRAM 25 MG PO ×2 (08:38→11:56)
--- NOTE | 2024-04-25 11:10 | W.PN.UPDATE ---
Update Note
Progress Note Update
Pt seen and evaluated at bedside. Sumeet diet. Pain improved. Mild ttp to RUQ on exam. Endoscopy yesterday with esophagitis and esophageal ulcer. Defer to GI for mgmt. C/o reflux not well controlled with 40mg BID protonix, I advised her to contact our
office to discuss hiatal hernia repair. GS will s/o pls call with ?s
[2024-04-25 11:41] VITALS: BP 115/62
[2024-04-25 11:47] LABS: ALT (SGPT) 15 U/L (0-35); AST (SGOT) 18 U/L (14-36); Albumin 3.2 g/dl (3.5-5.0); Alkaline Phosphatase 54 U/L (38-126); Blood Urea Nitrogen 12 mg/dl (7-17); Calcium 7.9 mg/dl (8.4-10.2); Carbon Dioxide 24 mmol/L (22-30); Chloride 110 mmol/L (98-107); Estimated Creatinine Clearance 66 ml/min; Glucose 90 mg/dl (70-99); Sodium 144 mmol/L (135-145); Total Bilirubin 0.8 mg/dl (0.2-1.3); Total Protein 5.4 g/dl (6.3-8.2); eGFR > 60.00
[2024-04-25] MEDS: NSS IV (12:23)
[2024-04-25 13:32] VITALS: BP 115/62; PULSE 62; O2SAT 96
--- NOTE | 2024-04-25 13:43 | W.PN.HOSP.TC ---
Addendum entered and electronically signed by Greta Byers MD 04/25/24 15:42:
I saw and evaluated the patient independently. I reviewed the resident�s note and agree with findings and plan as documented by Dr. Fisher.
GENERAL: well developed, well nourished, female in no apparent distress
HEENT: NC/AT--left TM dull with diminished light reflex--no redness
HEART: regular rate and rhythm, +S1, +S2
LUNGS : clear to auscultation bilaterally
ABDOM: soft, tender RUQ and midepigastrium with guarding (pulls my hand away when palpating), nondistended, + bowel sounds
EXT: no cyanosis, clubbing, or edema
NEUROLOGIC: grossly intact
acute blood loss anemia likely due to Upper GI Bleed in the Setting of History of PUD--presented with melena--apprec GI, s/p EGD with small, linear, superficial esophageal ulcers--cont PPI BID--avoid NSAIDS- Hb 13.9 at last discharge in February
2023; 9.9 yesterday; 8.8 today. Follow H&H. Transfuse for Hb less than 7.
RUQ abdominal pain--likely due to symptomatic Cholelithiasis --no evidence of cholecystitis--await CT scan a/p--apprec surgery--outpt elective lap linda
DARYL -resolved-- Likely in the setting of NSAID use- Discontinue NSAIDs- Continue to monitor CMP.
Essential HTN- Clonidine 0.1mg BID; only medication pt takes at home- Hold Propranolol; given this morning with SBP ~95. Pt states she does not normally take this medication at home.
HLD- Continue Atorvastatin.
Anxiety/Depression/Insomnia- Continue home dose Trazadone qhs.
left ear fullness--maybe needs flonase or short steroid course--f/u with ENT as outpt
DVT proph
code status -- FULL CODE
Original Note:
Today's Communication/Plan
-
Discharge to home with follow up with GI and surgery on an outpatient basis.
Assessment / Plan
Assessment / Plan
1. Upper GI Bleed in the Setting of History of PUD
- Discontinue NSAIDs. Pain control with PRN Tramadol.
- GI on consult
- EGD (04/24): small, linear, superficial distal esophageal ulcers with no active bleed or stigmata of recent bleed. Likely source of dark stools and anemia.
- IV PPI; 40 mg BID for 8 weeks then once/day indefinitely.
- Hb 9.9 on admission; no active bleed on EGD; 8.8 yesterday, 8.7 today, stable.
2. Cholelithiasis
- Abdomen US (04/23): Cholelithiasis. No sonographic evidence of cholecystitis.
- N.p.o.
- IVF
- CT Abdomen and Pelvis pending: mild distension of gallbladder; no secondary signs of infection/inflammation.
- To follow up with surgery outpatient.
3. DARYL
- Likely in the setting of NSAID use.
- Discontinue NSAIDs.
- 0.9 today, resolved.
4. HTN
- Clonidine 0.1mg BID; only medication pt takes at home.
- Hold Propranolol; given this morning with SBP ~95. Pt states she does not normally take this medicaiton at home.
5. HLD
- Continue Atorvastatin.
6. Anxiety/Depression/Insomnia
- Continue home dose Trazadone qhs.
7. Ear Pain
- Pt has an ENT and was advised to follow up outpatient.
Anticipated Discharge: Today
Subjective/Interval History
-
Date of Service: April 25, 2024
Pt notes continued discomfort in the epigastrium and RUQ. Denies nausea, vomiting, diarrhea. Denies chest pain or dizziness. Pt also concerned of unrelated ear pain.
Objective Data
-
Labs:
Laboratory Results
04/25/24
07:53
WBC 5.4
Hgb 8.7 L
Hct 26.3 L
Plt Count 226
Sodium 144
Potassium 4.0
Chloride 110 H
Carbon Dioxide 24
BUN 12
Creatinine 0.9
Glucose 90
Calcium 7.9 L
Total Bilirubin 0.8
AST 18
ALT 15
Alkaline Phosphatase 54
Vital Signs:
Vital Signs
Temp Pulse Resp BP Pulse Ox
97.9 F 61 18 115/62 95
04/25/24 11:41 04/25/24 11:41 04/25/24 11:41 04/25/24 11:41 04/25/24 11:41
I&O
04/24/24 04/25/24 04/26/24
06:59 06:59 06:59
Intake Total 100 / 100 2360 / 2360
Balance 100 / 100 2360 / 2360
Review of Systems
-
History Source: Patient
Constitutional: Reports No Symptoms
EENT: Reports Other (L ear pain)
Respiratory: Reports No Symptoms
Cardiac: Reports No Symptoms
Abdomen/GI: Reports Abdominal Pain and Other (no n/v/d)
Skin: Reports No Symptoms
Neuro: Reports No Symptoms
Physical Exam
-
General: Well Developed, No Apparent Distress and Other (obese)
HEENT: Normocephalic, Atraumatic and Other (otoscopic examination of the left ear reveals a dull light reflex, but no erythema or bulging )
Respiratory: Clear to Auscultation
Cardiac: Regular Rhythm and S1/S2
GI: Soft, Nondistended and Tender (mild tender to palpation in the epigastrium and RUQ. )
Musculoskeletal: No Cyanosis and No Edema
Skin: Warm and Dry
Neuro: Awake, Alert and Oriented
Psych: Calm
Data Reviewed
-
CT Scan: Report Reviewed by me and Discussed with Patient
Labs: Labs Reviewed by me and Discussed with Patient
--- NOTE | 2024-04-25 13:44 | CM ---
Patient seen at bedside with physicians. Patient states that she plans to go home today, IMM provided and signed form placed on chart. Patient for follow up with surgery as outpatient. CM will continue to follow for discharge planning needs.
Plan; home with no needs.
[2024-04-25 15:51] VITALS: BP 127/68
--- NOTE | 2024-04-26 06:59 | W.DCSUMMARY ---
Addendum entered and electronically signed by Greta Byers MD 04/26/24 07:41:
Read, reviewed, and agree. See same day progress note for additional details. Time spent coordinating care, DC planning, review of DC plan of care with resident, transition of care, review of records in EMR, med rec, consults, notes, d/w
consultants, nursing, family, and CM = < 30 minutes
Actual discharge date was April 25, 2024 not April 26, 2024 as listed.
Original Note:
Discharge Summary
Discharge Data
Date of Admission: 04/23/24
Date of Discharge: 04/26/24
-
Pending Results: No
Hospital Course
Anel Feng is a 68-year-old female with a past medical history of PUD, IBS, diverticulosis, chronic bronchitis, COPD, GERD, hypercholesterolemia, and anxiety/depression who presented to the emergency department on April 23, 2024 for evaluation
of generalized fatigue, exertional shortness of breath, and blackened stools for several weeks. The patient had a noted history of peptic ulcer disease that required blood transfusions earlier in this year for iron deficiency and blood loss anemia.
In addition, the patient had a recent left ear infection a few weeks ago which was treated with antibiotics. The patient completed her antibiotic course, however, she was left with residual pain in the left ear. For this she was taking
[id number] naproxen twice a day for the 2 weeks preceding her admission despite knowing her history of peptic ulcer disease.
In the emergency department, the patient was in no acute distress. However she presented with a soft but tender abdomen particularly in the right upper quadrant. The patient did not exhibit any peritoneal signs. An upper abdominal ultrasound was
completed for right upper quadrant pain which revealed cholelithiasis but no evidence of gallbladder wall thickening or pericholecystic edema. The patient did however have a positive sonographic Melgar sign. The patient had a normal white count,
however, her hemoglobin at that time was 9.9 which was concerning because on past admissions her hemoglobin ranged from 13-14. The patient was started on 40 mg IV of Protonix, typed and screened, consented for blood, and admitted to [facility] on April 23, 2024.
While in the hospital the patient was seen by the drapery head former given concern for the acute drop in hemoglobin and potential upper gastrointestinal bleed. Dr. Ramirez performed an EGD which showed 2 linear ulcerations of the distal esophagus
that were not actively bleeding and did not show stigmata of bleeding. Per GI this was the source of the patient's melanotic stools. Following this EGD, the patient was started on Protonix 40 mg twice a day, which she was instructed to continue
for 8 weeks. After this 8-week period the patient would remain on Protonix 40 mg once a day for the indefinite future. Despite finding the source of the bleed, her hemoglobin hematocrit were closely followed during her admission. The patient's
hemoglobin dropped to 8.8 on the second day of her admission, but then stabilized the next day at 8.7. The patient was not transfused while at [facility].
With regard to the patient's cholelithiasis the patient was also seen by general surgery. They opted to do a CAT scan of the abdomen pelvis, which revealed a small to moderate hiatal hernia and cholelithiasis. Although the gallbladder was
distended there were no additional secondary signs to suggest acute cholecystitis or biliary ductal dilatation. Surgery felt that these issues could be managed on an outpatient basis.
During her admission, the medicine team also managed the patient's hypertension, for which she was taking Inderal and clonidine per her home medication list. During the patient's admission the patient made it clear that she does not take Inderal at
home and that she only takes clonidine. However during her admission, patient's blood pressures would drop to the mid 90s systolic and clonidine would in addition be held when her pressure dropped to low. It is advised that on outpatient
follow-up, the patient should have a medication reconciliation with her primary care provider with regards to her antihypertensives.
The patient was discharged to home on April 25, 2024 after 3 days of admission for outpatient follow-up with the drapery head former, Dr. Ramirez, the general surgeon, Dr. Rushing, and her primary care physician, Dr. Swan.
Discharge Plan
-
Patient Disposition: Home (Routine Discharge)
Discharge Diagnosis/Procedures: Esophageal Ulcers
Cholelithiasis
Hiatal Hernia
Diet: Low Fat
Activity: As tolerated
Referrals:
Giselle Swan MD [Family Provider] - in one week
Irving Rushing MD [Active] - in two weeks (for consultation regarding elective surgery)
Donta Ramirez DO [Active] - in two weeks
Prescriptions:
New
pantoprazole [Protonix] 40 mg tablet,delayed release (DR/EC)
40 mg PO BID 56 Days Qty: 112 0RF
Continued
clonidine HCl 0.1 MG tablet
0.1 mg PO BID
simvastatin 40 mg Tablet
40 mg PO HS
acetaminophen [Pain Relief ES (acetaminophen)] 500 mg tablet
500 mg PO BID
propranolol 40 mg Tablet
40 mg PO BID
trazodone 100 mg Tablet
200 mg PO HS
cholecalciferol (vitamin D3) [Vitamin D3] 25 mcg (1,000 unit) Tablet
25 mcg PO DAILY
Discontinued
naproxen sodium [Aleve] 220 mg Tablet
220 mg PO BID
Discharge Orders:
Discharge Patient (As Directed); Ordered 04/25/24
Ordered By: Edgardo Fisher
Discharge Date and Time
Discharge Date/Time: 04/25/24 16:29
Print Language: GUINEAN
== END 2024-04-25 16:29 | disposition home or self-care (01) | DRG 378 ==
LOC: 4 EAST ACU 15:15
PROVIDERS: Physician Assistant; ADMITTING PHYSICIAN Hospitalist; ATTENDING PHYSICIAN Internal Medicine; CONSULT PHYSICIAN Student in an Organized Health Care Education/Training Program; CONSULT PHYSICIAN Surgery; EMERGENCY PHYSICIAN Emergency Medicine; FAMILY PHYSICIAN Emergency Medicine
PROC: 0DB58ZX Excision of Esophagus, Via Natural or Artificial Opening Endoscopic, Diagnostic (ICD-10-PCS; 2024-04-24)
DX: K92.2 Gastrointestinal hemorrhage, unspecified (principal); D62 Acute posthemorrhagic anemia; N17.9 Acute kidney failure, unspecified; K22.11 Ulcer of esophagus with bleeding; Z66 Do not resuscitate; Z87.891 Personal history of nicotine dependence; I10 Essential (primary) hypertension; F41.9 Anxiety disorder, unspecified; F32.A Depression, unspecified; E78.5 Hyperlipidemia, unspecified; K44.9 Diaphragmatic hernia without obstruction or gangrene
CPT/HCPCS: 88305; 88312; 74177; 76700; 80053; 82607; 82746; 83540; 83550; 83690; 85025; 85027; 86803; 86850; 86900; 86901; 88342; 96374; 97116; 97163; 97166; 99285; Q9967

== ENCOUNTER → 2024-04-27 11:31 | Outpatient (REF) | payer MEDICARE, OTHER, SELFPAY ==
[2024-04-27 16:06] LABS: % Basophils 0.4 % (0-2); % Eosinophils 1.8 % (0-6); % Immature Granulocytes 0.5 % (0-0.5); % Monocytes 5.7 % (1.7-9.3); % Neutrophils 73.6 % (42.2-75.2); Absolute Eosinophils 0.1 10^3/uL (0-0.7); Absolute Lymphocytes 1.3 10^3/uL (1.2-3.4); Absolute Monocytes 0.4 10^3/uL (0.1-0.6); Absolute Neutrophils 5.4 10^3/uL (1.4-6.5); Hematocrit 32.2 % (37.0-47.0); Hemoglobin 10.6 g/dL (12.0-16.0); Mean Corp Hgb Conc. 32.9 g/dL (33.0-37.0); Mean Corpuscular Hgb 32.1 pg (27.0-31.0); Mean Corpuscular Volume 97.6 fL (81.0-99.0); Mean Platelet Volume 10.2 fL (7.4-10.4); Nucleated Red Blood Cells % 0 %; Platelet Count 281 10^3/uL (130-400); Red Cell Dist. Width 14.6 % (11.5-14.5); White Blood Cell Count 7.3 10^3/uL (4.8-10.8)
[2024-04-27 16:13] LABS: ALT (SGPT) 14 U/L (0-35); AST (SGOT) 20 U/L (14-36); Alkaline Phosphatase 65 U/L (38-126); Blood Urea Nitrogen 5 mg/dl (7-17); Calcium 8.9 mg/dl (8.4-10.2); Carbon Dioxide 25 mmol/L (22-30); Chloride 106 mmol/L (98-107); Glucose 97 mg/dl (70-99); Iron 46 ug/dl (37-170); Potassium 4.1 mmol/L (3.5-5.1); Sodium 143 mmol/L (135-145); Total Bilirubin 0.6 mg/dl (0.2-1.3); Total Protein 6.5 g/dl (6.3-8.2); eGFR > 60.00
[2024-04-27 16:22] LABS: Percent Saturation 13 % (20-50); Total Iron Binding Capacity 340 ug/dl (265-497)
[2024-04-27 16:46] LABS: Ferritin 13.5 ng/ml (11.1-264.0)
== END ==
LOC: HWLAB 11:31
PROVIDERS: ATTENDING PHYSICIAN Internal Medicine Hematology & Oncology; FAMILY PHYSICIAN Emergency Medicine
DX: D50.9 Iron deficiency anemia, unspecified (principal); K25.3 Acute gastric ulcer without hemorrhage or perforation; M25.551 Pain in right hip; D64.9 Anemia, unspecified; E55.9 Vitamin D deficiency, unspecified
CPT/HCPCS: 36415; 80053; 82728; 83540; 83550; 85025

== ENCOUNTER → 2024-05-04 11:02 | Outpatient (REF) | payer MEDICARE, OTHER, SELFPAY ==
[2024-05-04 09:23] LABS: % Basophils 0.8 % (0-2); % Eosinophils 2.8 % (0-6); % Immature Granulocytes 0.3 % (0-0.5); % Lymphocytes 21.1 % (20.5-51.1); % Monocytes 7.2 % (1.7-9.3); % Neutrophils 67.8 % (42.2-75.2); Absolute Basophils 0.1 10^3/uL (0-0.2); Absolute Eosinophils 0.2 10^3/uL (0-0.7); Absolute Lymphocytes 1.3 10^3/uL (1.2-3.4); Absolute Monocytes 0.4 10^3/uL (0.1-0.6); Absolute Neutrophils 4.1 10^3/uL (1.4-6.5); Hematocrit 32.1 % (37.0-47.0); Hemoglobin 10.3 g/dL (12.0-16.0); Mean Corp Hgb Conc. 32.1 g/dL (33.0-37.0); Mean Corpuscular Hgb 31.6 pg (27.0-31.0); Mean Corpuscular Volume 98.5 fL (81.0-99.0); Mean Platelet Volume 9.7 fL (7.4-10.4); Nucleated Red Blood Cells % 0 %; Platelet Count 297 10^3/uL (130-400); Red Blood Cell Count 3.26 10^6/uL (4.20-5.40); Red Cell Dist. Width 14.5 % (11.5-14.5)
== END ==
LOC: OIDL 11:02
PROVIDERS: ATTENDING PHYSICIAN Internal Medicine Hematology & Oncology
DX: D50.9 Iron deficiency anemia, unspecified (principal); K25.3 Acute gastric ulcer without hemorrhage or perforation; M25.551 Pain in right hip
CPT/HCPCS: 84100; 85025

== ENCOUNTER 2024-05-11 14:44 | Day surgery (SDC) | payer MEDICARE, OTHER, SELFPAY ==
[2024-05-11] VITALS (19 sets, daily range): BP systolic 99–137; BP diastolic 62–91; BMI 29.9
--- NOTE | 2024-05-11 09:25 | EDRN ---
Mike CARTWRIGHT in room w/pt at this time.
--- NOTE | 2024-05-11 09:35 | EDRN ---
Pt states that she is having nausea and diarrhea. Pt states she has abd pain that was 15/10 during last night w/ multiple bouts of diarrhea. Pt states she has had nausea but no vomiting. Pt states pain is like a pressure and continuous. Pt denies
any urinary symptoms. Pain per pt is now 8/10. Pt was informed about obtaining a urine and a stool sample. pt stated unable to void as of yet.
--- NOTE | 2024-05-11 09:43 | ED.GENMED ---
History of Present Illness
General
Chief Complaint: Abdominal Symptoms
Source: patient
Exam Limitations: none
Time Seen by Provider: 05/11/24 09:14
Nursing documentation reviewed up to this point in time: agreed with
History of Present Illness
History of Present Illness:
68 yo female with h/o HLD, COPD, anxiety/depression, GERD, IBS, known gall stones, PUD, 'inflamed esophagus,' iron deficiency anemia, blood transfusion x 2 for Fe deficiency and blood loss anemia 06/2023, presents stating 2 days ago she had abdominal
pain from 5p to 3 a.m. with diarrhea that subsided until 5pm last evening when it started up again. Non bloody diarrhea frequently through the night, last episode 5 a.m.
Denies fever/chills. Has nausea, no vomiting. Abd pain is generalized but more so in right abdomen. Also feels SOB with exertion.
No known exposures, no recent travel, no sick contacts.
Went to 2 days ago for sore throat and pain in right hip/lower back after a fall. Put on Naproxen BID and Amoxicillin 500 mg BID. Has had total 4 doses of Amoxicillin.
States pain is 8/10, crampy.
Her last Iron Infusion was one week ago, was scheduled to go today but felt too ill.
04/24 Upper endoscopy showed esophagitis and esophageal ulcer.
Past History
Past History
ED Past Medical History: COPD, GERD, Hypercholesterolemia, Psychiatric (Anxiety, Depression) and Other (IBS, Diverticulosis, Back and neck pain, Sciatica, Chronic Bronchitis, Hemorrhoids)
ED Past Surgical History: (X 2), Gynecological (Hysterectomy) and Orthopedic (Left knee replacement, Right hip replacement); Negative Appendectomy or Cholecystectomy
Patient has exhibited threatening behavior?: No
Social History
Tobacco: Non-smoker
Alcohol: None
Drug: None
Personal:
Living: alone
Employment: Retired
Family History
Family History: Other (Mother with pancreatic cancer)
Review of Systems
Review of Systems
Allergies reviewed?: Yes
All Other Systems: ROS reviewed and negative except as documented in HPI and ROS
Constitutional: Reports fatigue; Denies fever
Respiratory: Reports trouble breathing; Denies cough
Cardiac: Denies chest pain, palpitations or syncope
ABD/GI: Reports abdominal pain, nausea, diarrhea and anorexia; Denies vomiting, bloody stools or black stools
: Denies dysuria, frequency or urgency
Musculoskeletal: Reports no symptoms
Skin: Reports no symptoms
Neurological: Reports no symptoms
Phy Exam
Physical Exam
Physical Exam:
GENERAL: No acute distress. A&Ox3.
CONSTITUTIONAL: Afebrile.
EYES: clear, conjunctivae normal
ENMT: moist mucus membranes, Pharynx nl
RESPIRATORY: Regular respirations, nonlabored, lungs clear.
CARDIOVASCULAR: Regular rate and rhythm, no murmurs, no rubs.
GI: Soft, generally tender to palpation, more tender right abdomen, non distended, normal BS
MUSCULOSKELETAL: Moves with ease. Well perfused.
SKIN: Warm, dry, pink
PSYCH: Normal mood and affect. Well kept, interactive and appropriate
NEUROLOGIC: Awake, alert and oriented. No focal neurological deficits
Course
Orders/Labs/Results
Orders:
Orders
05/11/24 Breakfast
NPO
Allow oral meds: Yes
Allow clear liquids: No
05/11/24 09:25
IV Insert/Care/Rem.- Treatment PRN
05/11/24 09:27
CT Abd/Pel (IV only)-DH only Urgent
Comment:
Reason For Exam: generalized abd pain
05/11/24 09:39
Complete Blood Count/With Diff Urgent
Comprehensive Metabolic Panel Urgent
Lipase Urgent
05/11/24 09:42
HYDROmorphone [Dilaudid] 0.5 mg IV NOW STA
Ondansetron Injectable [Zofran] 4 mg IV NOW STA
05/11/24 11:32
Ondansetron Injectable [Zofran] 4 mg .ROUTE .STK-MED ONE
05/11/24 11:33
SURGICAL CONSULT Urgent
Consulting Provider: Scooby Wahl
Was physician already notified: Yes
Reason for consult: appendicitis
05/11/24 11:35
Ondansetron Injectable [Zofran] 4 mg IV NOW STA
05/11/24 12:06
Piperacillin/Tazo 3.375 Gram [Zosyn] 3.375 gram in 50 ml IV NOW
05/11/24 12:50
Sequential Compression Device [Pneumatic Compression Sleeves] As Directed
Type: Knee high
DX Deep Vein Thrombosis Video Routine
05/11/24 12:51
Admit/Transfer Patient As Directed
Co-Sign Provider:
Level of Care: Post Proc/Surg Recovery
Assign to:: Medical/Surgical
Physician / Group: Vish/Gen surg
Diagnosis: Acute appendicitis
Reason for Overnight Stay: Standard of Care
PRN Pain Medication Management As Directed
May give lesser potent ordered pain med per pt: Yes
preference::
Protocol:: Medication orders for pain may be administered in a
manner that supports deferring to patient preference
when the pt is:
- Requesting an ordered lesser potent pain medication.
Least to most potent pain medications are defined
as: acetaminophen < NSAID < tramadol < opioids
(morphine, oxycodone, hydromorphone).
- Requesting a lesser dose of the same medication IF
ORDERED.
- Requesting a less intrusive route of administration
if both routes are prescribed by the provider (PO <
IV).
05/11/24 12:52
Code Status As Directed
Resuscitation Status: Full Code
05/11/24 13:02
Urinalysis Reflex To Culture Urgent
Date Specimen was Collected: 05/11/24
Time Specimen was Collected: 09:27
HYDROmorphone [Dilaudid] 1 mg IV Q4HPRN PRN
05/11/24 13:18
HYDROmorphone [Dilaudid] 0.25 mg IV PACU-Q5MPRN PRN
HYDROmorphone [Dilaudid] 0.5 mg IV PACU-Q5MPRN PRN
Ondansetron Injectable [Zofran] 4 mg IV PACU-ONCEPRN PRN
Prochlorperazine [Compazine] 5 mg IV PACU-ONCEPRN PRN
Notify MD As Directed
Notify physician if: for SDS patients with known or suspected sleep obstructive sleep apnea, monitor in the
PACU.
Notify MD for any apneic/desaturation episodes
O2 Therapy [RESP] Urgent
Titrate/Wean O2 to maintain O2 sat greater than (%): 92
Special Instructions: -Provide supplemental oxygen to achieve O2 sat of 92% or greater.
-After 15 min, may wean O2 and discontinue if patient is able to maintain O2 sat of 92%
or greater during recovery period.
If patient is a discharge home, without oxygen therapy, notify anestheiologist if
unable to maintain O2 SAT of 92% or greater on room air for MD clearance.
05/11/24 13:25
Prochlorperazine [Compazine] 10 mg IV Q6HPRN PRN
05/11/24 14:10
Dexamethasone Sod Phosphate [Decadron] 20 mg .ROUTE .STK-MED ONE
Lidocaine HCl/Pf [Xylocaine-Mpf 1% Vial] 50 mg .ROUTE .STK-MED ONE
Ondansetron Injectable [Zofran] 4 mg .ROUTE .STK-MED ONE
Propofol [Diprivan] 20 ml .ROUTE .STK-MED
Rocuronium [place] [Rocuronium] 50 mg .ROUTE .STK-MED ONE
05/11/24 14:11
Fentanyl Citrate/Pf [Sublimaze] 100 mcg .ROUTE .STK-MED ONE
Midazolam HCl [Versed] 2 mg .ROUTE .STK-MED ONE
05/11/24 15:15
Dexamethasone Sod Phosphate [Decadron] 20 mg .ROUTE .STK-MED ONE
Fentanyl Citrate/Pf [Sublimaze] 100 mcg .ROUTE .STK-MED ONE
Lidocaine 2% Mpf [Xylocaine Mpf 2%] 100 mg .ROUTE .STK-MED ONE
Ondansetron Injectable [Zofran] 4 mg .ROUTE .STK-MED ONE
Propofol [Diprivan] 20 ml .ROUTE .STK-MED
Rocuronium [place] [Rocuronium] 50 mg .ROUTE .STK-MED ONE
05/11/24 15:16
Midazolam HCl [Versed] 2 mg .ROUTE .STK-MED ONE
05/11/24 15:18
Bupivacaine 0.25%Pf/Epinephrin [Sensorcaine-Epi 0.25%-0.0005] 30 ml .ROUTE .STK-MED ONE
05/11/24 16:02
Acetaminophen 1000MG/100Ml [Ofirmev] 1,000 mg in 100 ml .ROUTE .STK-MED
05/11/24 16:08
Sugammadex Sodium [Bridion] 200 mg .ROUTE .STK-MED ONE
OR Pathology Routine
Pre-Operative Diagnosis: Appendicitis
Operative Procedure: Laparoscopic Appendectomy
Surgeon: Vish
Circulating Nurse: Darron
Specimen Type: Appendix
05/11/24 20:00
Pantoprazole [Protonix] 40 mg PO BID
Abnormal Lab Results
05/11/24
09:39
WBC 12.7 H 10^3/uL
(4.8-10.8)
RBC 3.57 L 10^6/uL
(4.20-5.40)
Hgb 11.2 L g/dL
(12.0-16.0)
Hct 34.8 L %
(37.0-47.0)
MCH 31.4 H pg
(27.0-31.0)
MCHC 32.2 L g/dL
(33.0-37.0)
RDW 15.8 H %
(11.5-14.5)
Abs Immat Gran (auto) 0.1 H 10^3/uL
(0-0.05)
Absolute Neuts (auto) 10.4 H 10^3/uL
(1.4-6.5)
Absolute Monos (auto) 0.7 H 10^3/uL
(0.1-0.6)
Neutrophils % 82.4 H %
(42.2-75.2)
Lymphocytes % 10.4 L %
(20.5-51.1)
BUN 21 H mg/dl
(7-17)
Glucose 127 H mg/dl
(70-99)
05/11/24 09:39
05/11/24 09:39
Vital Signs
Initial and Last Documented VS:
Initial Vital Signs
Temp Pulse Resp BP Pulse Ox
98.3 F 114 16 137/91 95
05/11/24 09:10 05/11/24 09:10 05/11/24 09:10 05/11/24 09:10 05/11/24 09:10
Last Documented Vital Signs
Temp Pulse Resp BP Pulse Ox
98.4 F 94 16 106/72 95
05/11/24 13:58 05/11/24 14:08 05/11/24 14:08 05/11/24 14:08 05/11/24 14:08
MDM/Problems Addressed
Differential Diagnosis Includes:
Diverticulitis, colitis, antibiotic side effect, anemia
MDM/Problems Addressed:
68 yo female with h/o HLD, COPD, anxiety/depression, GERD, IBS, known gall stones, PUD, 'inflamed esophagus,' iron deficiency anemia, blood transfusion x 2 for Fe deficiency and blood loss anemia 06/2023, presents stating 2 days ago she had abdominal
pain from 5p to 3 a.m. with diarrhea that subsided until 5pm last evening when it started up again. Non bloody diarrhea frequently through the night, last episode 5 a.m.
Denies fever/chills. Has nausea, no vomiting. Abd pain is generalized but more so in right abdomen. Also feels SOB with exertion.
No known exposures, no recent travel, no sick contacts.
Went to 2 days ago for sore throat and pain in right hip/lower back after a fall. Put on Naproxen BID and Amoxicillin 500 mg BID. Has had total 4 doses of Amoxicillin.
States pain is 8/10, crampy.
04/24 Upper endoscopy showed esophagitis and esophageal ulcer.
Her last Iron Infusion was one week ago, was scheduled to go today but felt too ill.
Afebrile, NAD
Abd generally tender to palpation, worse in right abdomen, normal BS
10:00 a.m.
CBC: WBC 12.7, Hgb and indices consistent with her chronic anemia, Hgb improved since last
CMP unremarkable
11:[address] abd/pelvis w IV only contrast: Radiologist texted me saying she has acute appendicitis.
Pt informed, stable, appears comfortable, in no apparent distress
Hospitalist and General Surgeon notified.
12:20
Appears comfortable, talking on phone
Surgical personnel in
Admission orders written
*Critical Care Note
Total Time (30-74mins, 75-104mins- exclusive of procedures): Not Applicable
ED Attending Note
-
Portions of this chart may have been created with voice recognition software.� Occasional wrong word or��sound alike� substitutions may have occurred due to the inherent limitations of voice recognition software.
Discharge Plan
Departure
Patient Disposition: Admit
Date of Disposition: 05/11/24
Time of Disposition: :25
Presentation/result/management discussed w/ accepting /: Vish
Condition: Fair
Discharge Problem:
Acute appendicitis
Interventions
Interventions:
*Risk Screen - Suicide Last Done: 05/11/24 09:31
*General Assessment Last Done: 05/11/24 09:31
*Neglect/Abuse Screening Last Done: 05/11/24 09:31
ED- Fall Risk Assessment Last Done: 05/11/24 09:32
*ED COVID-19 Vaccine History Last Done: 05/11/24 09:31
*Nursing Disposition Last Done: 05/11/24 14:32
CX-Oqwtxq-Yejwsobzmp Assessment Last Done: 05/11/24 09:41
Discharge Date and Time
Discharge Date/Time: 05/11/24 14:32
[2024-05-11 09:46] LABS: % Basophils 0.5 % (0-2); % Eosinophils 0.9 % (0-6); % Immature Granulocytes 0.4 % (0-0.5); % Lymphocytes 10.4 % (20.5-51.1); % Monocytes 5.4 % (1.7-9.3); % Neutrophils 82.4 % (42.2-75.2); Absolute Basophils 0.1 10^3/uL (0-0.2); Absolute Eosinophils 0.1 10^3/uL (0-0.7); Absolute Immature Granulocytes 0.1 10^3/uL (0-0.05); Absolute Lymphocytes 1.3 10^3/uL (1.2-3.4); Absolute Monocytes 0.7 10^3/uL (0.1-0.6); Absolute Neutrophils 10.4 10^3/uL (1.4-6.5); Hematocrit 34.8 % (37.0-47.0); Hemoglobin 11.2 g/dL (12.0-16.0); Mean Corp Hgb Conc. 32.2 g/dL (33.0-37.0); Mean Corpuscular Hgb 31.4 pg (27.0-31.0); Mean Corpuscular Volume 97.5 fL (81.0-99.0); Mean Platelet Volume 9.3 fL (7.4-10.4); Nucleated Red Blood Cells % 0 %; Platelet Count 280 10^3/uL (130-400); Red Blood Cell Count 3.57 10^6/uL (4.20-5.40); Red Cell Dist. Width 15.8 % (11.5-14.5); White Blood Cell Count 12.7 10^3/uL (4.8-10.8)
[2024-05-11] MEDS: DILAUDID 0.5 MG IV ×2 (09:49→17:18)
[2024-05-11] MEDS: ZOFRAN 4 MG IV ×2 (09:49→11:36)
[2024-05-11 10:02] LABS: ALT (SGPT) 15 U/L (0-35); AST (SGOT) 18 U/L (14-36); Albumin 4.1 g/dl (3.5-5.0); Alkaline Phosphatase 80 U/L (38-126); Blood Urea Nitrogen 21 mg/dl (7-17); Calcium 9.5 mg/dl (8.4-10.2); Carbon Dioxide 25 mmol/L (22-30); Chloride 103 mmol/L (98-107); Estimated Creatinine Clearance 82 ml/min; Glucose 127 mg/dl (70-99); Lipase 42 U/L (23-300); Potassium 3.8 mmol/L (3.5-5.1); Sodium 142 mmol/L (135-145); Total Bilirubin 0.5 mg/dl (0.2-1.3); Total Protein 6.5 g/dl (6.3-8.2); eGFR > 60.00
--- NOTE | 2024-05-11 11:20 | EDRN ---
This RN spoke to Mike CARTWRIGHT about pt's continued pain and nausea at this time. A dose of zofran was ordered but no pain medication as pt will need to await surgeon as she has appendicitis. Pt was informed.
--- NOTE | 2024-05-11 11:27 | EDRN ---
Mike CARTWRIGHT in to see pt. Pt Mike CARTWRIGHT informed this RN has appendicitis. Pt has not provided any urine or stool sample.
--- NOTE | 2024-05-11 11:50 | EDRN ---
Pt asking for more nausea medication, asking for oral medications for nausea and GERD. Pt informed she is NPO until it is known if she will be going to OR or not.
--- NOTE | 2024-05-11 12:02 | HPS.HSE ---
Addendum entered and electronically signed by Scooby Wahl MD 05/11/24 15:23:
Patient seen and examined. Agree with assessment plan as documented below.
Patient is a 68 yo F with a PMH of anxiety/depression, asthma, recent admission for UGIB, COPD, s/p x 2, and s/p vaginal hysterectomy with BSO. Ms. Feng presents with 2 days of RLQ abdominal pain. She states that she initially had an
acute episode of abdominal pain which then improved but then promptly recurred and persisted prompting presentation to the ED. Pain was initially more generalized and associated with bloating. Pain is localized to the RLQ. She does report taking
NSAIDs for her discomfort. No nausea or vomiting. She does note looser nonbloody stools.
Gen: NAD
Abd: soft, tender in RLQ, obese, distended, non-peritoneal, prior incisions well healed
Labs and CT scan imaging reviewed. Notable for mild leukocytosis, improved anemia, normal renal function, normal LFTs and bilirubin. CT demonstrates a dilated appendix with appendicolith and mild periappendiceal inflammation, no evidence of
perforation or abscess formation.
Patient is a 68 yo F p/w acute appendicitis
The natural history and pathophysiology of appendicitis was briefly reviewed. CT scan imaging and labs were reviewed. Options for management including medical management with antibiotics versus surgical management with appendectomy were considered
and discussed. The pros and cons of both approaches was discussed. Specifically, we discussed failure of medical management and future episodes of appendicitis versus surgical risks. Recommend appendectomy.
Plan for laparoscopic appendectomy. The procedure itself, as well as the risks, benefits, and alternatives was discussed. Specifically, we discussed the risks of bleeding, infection, injury to surrounding structures (bowel, bladder), staple line
leak, need for open procedure. Typical postprocedure recovery was discussed. All questions answered. Consent signed.
-- Laparoscopic appendectomy
-- NPO, IVF
-- Antibiotics: Zosyn
-- Admit postoperatively
Original Note:
Family Physician
-
Family Physician: Giselle Swan MD
Chief Complaint
-
Abdominal pain
History of Present Illness
68 yo female with a h/o COPD, Csection x2, Vaginal hysterectomy/bso and recent admission earlier this month for GIB with esophageal ulcers diagnosed at that time. She was evaluated by our service on her prior admission as her abdominal US at that
time showed cholelithiasis with a positive esqueda's sign although this was thought to be likely related to her ulcerative disease and outpatient follow up was recommended after resolution for further evaluation. She recently was seen at urgent care
for a sore throat and back pain and has been on Augmentin and Naprosyn for the past several days. 2 days ago, she noted an acute episode of abdominal pain which lasted a few hours and then subsided. The pain came back last night again and persisted
causing her to present for evaluation. She notes bloating and nonbloody diarrhea overnight. She states that her pain was initially generalized but is now more localized to the RLQ and pelvis. On exam, she does have RLQ tenderness and +Rovsing's
sign. There is no RUQ or epigastric tenderness. She reported nausea but no vomiting at home. She denies reports some subjective fever symptoms at home.
Medical History
Past Medical History
Past Medical History: Reports COPD and Other (hiatal hernia, DDD with spinal stenosis, iron deficiency anemia on iron transfusions as OP, PUD with esophageal ulcer noted on EGD 04/24/24)
Past Surgical History: Reports (x2), Orthopedic (Left TKR, Right THR ) and Other (vaginal hysterectomy/bso)
Social History
Tobacco: Former Smoker
Alcohol: None
Living: Alone
Family History
Family History: Not pertinent
Allergies / Home Medications
Allergies reflects when Allergies were last updated in [facility] [employer].
Home Medications with original date entered in [facility]
Allergy/Medication List:
Patient Allergies
Allergy/AdvReac Type Severity Reaction Status Date / Time
sulfur [From Sulfur-8] Allergy sulfa-swell Verified 05/11/24 09:12
ing,rash
�Medication �Instructions �Recorded �Confirmed �Type
clonidine HCl 0.1 mg tablet 0.1 mg PO BID Blood pressure 12/02/21 05/11/24 History
simvastatin 40 mg tablet 40 mg PO HS High Cholesterol 07/15/23 05/11/24 History
acetaminophen 500 mg tablet (Pain 1,500 mg PO BID Pain 04/23/24 05/11/24 History
Relief Extra Strength
(acetaminophen))
cholecalciferol (vitamin D3) 25 25 mcg PO DAILY Supplement 04/23/24 05/11/24 History
mcg (1,000 unit) tablet (Vitamin
D3)
trazodone 100 mg tablet 200 mg PO HS Sleep 04/23/24 05/11/24 History
albuterol sulfate 90 mcg/actuation 1 inh inhalation Q4HPRN PRN 05/11/24 05/11/24 History
aerosol inhaler wheeze/SOB
amoxicillin 500 mg tablet 500 mg PO BID x10 days 05/11/24 05/11/24 History
[05/06-05/16/24]
naproxen 500 mg tablet 500 mg PO BID x 12 days 05/11/24 05/11/24 History
[05/06-05/18]
pantoprazole 40 mg tablet,delayed 40 mg PO BID Gastrointestinal Issue 05/11/24 05/11/24 History
release (Protonix)
tramadol 50 mg tablet 50 mg PO Q8HPRN PRN pain 05/11/24 05/11/24 History
Review of Systems
-
History Source: Patient
A 12 point ROS was completed and negative except as noted: Yes
Physical Exam
Vital Signs
Vital Signs
Temp Pulse Resp BP Pulse Ox
98.3 F 91 16 123/82 92
05/11/24 09:10 05/11/24 10:46 05/11/24 10:46 05/11/24 10:46 05/11/24 10:46
Physical Exam
General: Well Developed and Well Nourished
HEENT: Moist mucous membranes
Respiratory: Non Labored Respirations
GI: Soft, Non Distended and Tender (RLQ into pelvis, +Rovsings)
Skin: Warm and Dry
Neuro: Awake, Alert and AO x 3
Psych: Calm
Laboratory Results
-
05/11/24 09:39
05/11/24 09:39
Laboratory Results
Total Bilirubin 0.5 mg/dl (0.2-1.3) 05/11/24 09:39
AST 18 U/L (14-36) 05/11/24 09:39
ALT 15 U/L (0-35) 05/11/24 09:39
Alkaline Phosphatase 80 U/L (38-126) 05/11/24 09:39
Lipase 42 U/L (23-300) 05/11/24 09:39
Data Reviewed
-
CT Scan: Image Personally Visualized and interpreted, Report Reviewed by me, Discussed with Physician, Discussed with Patient and Discussed with Family (via telephone)
Lab Data: Labs Reviewed by me, Discussed with Physician, Discussed with Nurse and Discussed with Family
Old Records: Reviewed
Impression/Plan
-
IMPRESSION: 68 yo female with a recent history of esophageal ulcer with admission for upper abdominal pain with GIB earlier this month presenting with RLQ pain x2 days with nausea and diarrhea developing overnight. Of note, she was recently started
on Augmentin for a sore throat and Naprosyn for back pain in urgent care 2-3 days ago. She denies melena or recurrent epigastric pain. Pain on this presentation is to the RLQ with CT imaging concerning for appendicitis with appendicolith present.
Leukocytosis present, LFT's wnl. Afebrile normal vital signs.
PLAN:
NPO for OR later today for laparoscopic appendectomy
Zosyn to start in ED
Analgesics/antiemetics as needed. Discussed with patient and daughter, that NSAIDS such as Naprosyn should be avoided given her ulcerative disease
Hold antihypertensive
SCDs for VTE ppx
[2024-05-11] MEDS: ZOSYN 50 IV (12:57)
--- NOTE | 2024-05-11 13:00 | EDRN ---
This RN went into pt's room at this time to hang the ordered antibiotic Zosyn and send pt's urine and pt asked for pain medication at this time saying that surgeon was in and said that pain medication would be ordered. This RN informed pt that she
did not see a pain med ordered in the MAR and would look for it. Pt kept repeating w/ daughter on phone as well as daughter repeating that there is an order. This RN stated to pt that the RN needs to see the order for type of medication and amount
and cannot administer w/out an order. This RN went out of room and founde the order in the admission orders for dilaudid 1 mg. This RN informed pt that she was correct an order was in the chart and now crossed over to AUG to be administered w/
Pharmacy notified to verify the order. This RN went to get dilaudid right after that.
[2024-05-11] MEDS: DILAUDID 1 MG IV ×2 (13:15→20:27)
[2024-05-11 13:27] LABS: Urine Albumin Trace (Neg - Trace); Urine Bilirubin Negative (Negative); Urine Character Clear (Clear); Urine Color Yellow; Urine Glucose Negative (Negative); Urine Ketone Negative (Negative); Urine Leukocyte Negative (Negative); Urine Nitrite Negative (Negative); Urine Occult Blood Negative (Negative); Urine Specific Gravity 1.015 (<1.030); Urine Urobilinogen Negative (Neg - 1+)
--- NOTE | 2024-05-11 13:41 | EDRN ---
This RN TT'd Rachael Carrasco w/ surgery at 11:23 for an order for nausea and epigastric GERD medication as protonix cannot be administered until 20:00. Pt when this RN attempted to administer the ordered dose of compazine said that it hurt when this RN
attempted to administer the compazine. Pt was informed that the IV would have to be discontinued and a new IV started. Pt requested a 'butterfly' IV. This RN informed pt that butterfly needles are not used here for IV access and are the same size as
other IVs. Daughter looked up on line and told me that butterfly needles are shorter. This RN agreed that the needle was shorter but that they are not used in this case. Daughter and patient looked upset and this RN requested a new nurse for pt.
[2024-05-11] MEDS: COMPAZINE 10 MG IV (13:56)
--- NOTE | 2024-05-11 14:01 | EDRN ---
This RN administered Dilaudid and 5 minutes later pt stated that pain was 5-6/10.
--- NOTE | 2024-05-11 15:17 | W.SUR.PREOP ---
Pre-Operative Surgical Note
-
I have examined this patient prior to the performance of the scheduled procedure.
The patient's condition is unchanged from the time of the current History and
Physical and the patient is able to undergo the scheduled procedure.
--- NOTE | 2024-05-11 16:21 | W.IMMPOSTOP ---
Surgical Immed Post Op Note
-
Primary Surgeon: Vish
Assisting Surgeon: PHI Das
Pre-op Diagnosis: Acute appendicitis
Post-op Diagnosis: Acute appendicitis
Procedure Performed: Laparoscopic appendectomy
Anesthesia Type: General
Specimen / Cultures:
1. Appendix
Estimated Blood Loss: 3 cc
Complications: None
Operative Findings:
1. Acutely inflamed, dilated appendix, adhesions of Ligament of Treves, no perforation or purulent contamination
2. Mesentery with [place], base with elliott load stapler
--- NOTE | 2024-05-11 17:45 | PTCARENOTE ---
Telephone report received from [employer] Rose; patient arrived in bed @17:45 on O2 2L; VSS; patient ambulated to bathroom to urinate; admission history obtained at bedside.
[2024-05-11] MEDS: NSS 1000 IV (18:25)
[2024-05-11] MEDS: TYLENOL 650 MG PO (20:30)
[2024-05-11] MEDS: PROTONIX 40 MG PO (20:30)
[2024-05-11] MEDS: CATAPRES PO (20:32)
[2024-05-11] MEDS: DESYREL 200 MG PO (21:33)
[2024-05-12] MEDS: TYLENOL PO ×4 (01:07→16:03)
[2024-05-12] MEDS: DILAUDID 1 MG IV (02:26)
[2024-05-12 03:00] VITALS: BP 162/95
[2024-05-12 07:20] VITALS: BP 143/85
[2024-05-12] MEDS: PROTONIX 40 MG PO (07:44)
[2024-05-12] MEDS: ULTRAM 50 MG PO (07:44)
[2024-05-12] MEDS: CATAPRES 0.1 MG PO (07:45)
[2024-05-12] MEDS: TYLENOL 650 MG PO (07:45)
[2024-05-12] MEDS: DILAUDID 2 MG PO ×2 (09:22→13:34)
--- NOTE | 2024-05-12 10:10 | W.PN.GS2 ---
Today's Communication / Plan
-
dispo planning
Assessment / Plan
-
68 yo female with recent h/o esophageal ulcer on PPI presenting for acute appendicitis now POD #1 lap appi
AFVSS
Tolerating diet
Will adjust analgesics for better pain control
--OOB/Ambulate
--Continue regular diet
--D/C today once ride available
Subjective Data
-
Date of Service: May 12, 2024
Patient seen and examined at bedside with Dr. Michael. Denies n/v. Tolerating diet. Some incisional pain. Tramadol has been ineffective. passing flatus.
Objective Data
-
Intake and Output
05/11/24 05/12/24 05/13/24
06:59 06:59 06:59
Intake Total 580 / 580
Balance 580 / 580
Intake:
Oral fluids 480 / 480
IV fluids (Total) 100 / 100
nrmosol 100 / 100
Other:
Number of approximated MODERATE 2
amounts of urine
Vital Signs
Temp Pulse Resp BP Pulse Ox
97.2 F 79 16 143/85 95
05/12/24 07:20 05/12/24 07:45 05/12/24 07:20 05/12/24 07:45 05/12/24 07:50
Lab Results
05/11/24 09:39
05/11/24 09:39
Calcium 9.5 mg/dl (8.4-10.2) 05/11/24 09:39
Total Bilirubin 0.5 mg/dl (0.2-1.3) 05/11/24 09:39
AST 18 U/L (14-36) 05/11/24 09:39
ALT 15 U/L (0-35) 05/11/24 09:39
Alkaline Phosphatase 80 U/L (38-126) 05/11/24 09:39
Total Protein 6.5 g/dl (6.3-8.2) 05/11/24 09:39
Albumin 4.1 g/dl (3.5-5.0) 05/11/24 09:39
Physical Exam
-
Gen: NAD
Abd: soft, obese, ND, tender to incisions
Incisions clear, dry and intact
--- NOTE | 2024-05-12 10:15 | W.DS.TRANS ---
DC Summary - [place] [facility]
-
Discharge Instructions:
Discharge Diagnosis/Procedures Appendicitis status post appendectomy
Diet As tolerated
Activity No strenuous activity
Additional Activity Do not lift anything over 15 lbs for the next 2-
3 weeks
Driving Restrictions Wait until off narcotics/comfortable twisting
Bathing Restrictions OK to Shower
Wound Care Keep incisions clean and dry. Allow the glue to
fall off your incisions on its own over the
next 2-3 weeks. Do not scrub or pick off the
glue. Stitches will dissolve.
Instructions:
Stand-Alone Forms:
Changes to Home Medications: No
Discharge Medications:
DC Medications w/original date entered in [facility]
clonidine HCl 0.1 mg tablet 0.1 mg PO BID Blood pressure 12/02/21
simvastatin 40 mg tablet 40 mg PO HS High Cholesterol 07/15/23
acetaminophen 500 mg tablet (Pain Relief Extra Strength (acetaminophen)) 1,500 mg PO BID Pain 04/23/24
cholecalciferol (vitamin D3) 25 mcg (1,000 unit) tablet (Vitamin D3) 25 mcg PO DAILY Supplement 04/23/24
trazodone 100 mg tablet 200 mg PO HS Sleep 04/23/24
albuterol sulfate 90 mcg/actuation aerosol inhaler 1 inh inhalation Q4HPRN PRN wheeze/SOB 05/11/24
amoxicillin 500 mg tablet 500 mg PO BID x10 days [05/06-05/16/24] 05/11/24
pantoprazole 40 mg tablet,delayed release (Protonix) 40 mg PO BID Gastrointestinal Issue 05/11/24
hydromorphone 2 mg tablet 2 mg PO Q4HPRN PRN severe pain #10 tabs 05/12/24
Home Medication Changes
Pending Results: No
--- NOTE | 2024-05-12 10:42 | CM ---
Patient seen at bedside. Patient stated that she plans to go home today with no VN and daughter to transport her to [place] on tuesday pm. Patient PCP is Dr. Swan [facility] [place] [facility] the [facility] of choice. Patient stated that the pharmacy
closes at 7pm. Patient stated home is a 2 story home with 3 steps to enter. Patient daughter to transport her home today. IMM completed and signed form placed on chart. CM will continue to follow for discharge planning needs.
Plan; home with no needs.
[2024-05-12 11:05] VITALS: BP 102/61
[2024-05-12 15:00] VITALS: BP 115/69
== END 2024-05-12 16:28 | disposition home or self-care (01) ==
LOC: PACU 14:44
PROVIDERS: Registered Nurse; ATTENDING PHYSICIAN Surgery; EMERGENCY PHYSICIAN Emergency Medicine; FAMILY PHYSICIAN Emergency Medicine
DX: K35.80 Unspecified acute appendicitis (principal)
CPT/HCPCS: 44970; 88304; 74177; 80053; 81003; 83690; 85025; 96365; 96375; 96376; 99285; C1776; Q9967

== ENCOUNTER → 2024-06-07 15:46 | Outpatient (REF) | payer MEDICARE, OTHER, SELFPAY ==
[2024-06-07 14:40] LABS: % Basophils 0.2 % (0-2); % Eosinophils 0.8 % (0-6); % Immature Granulocytes 0.2 % (0-0.5); % Lymphocytes 17.9 % (20.5-51.1); % Monocytes 4.8 % (1.7-9.3); % Neutrophils 76.1 % (42.2-75.2); Absolute Eosinophils 0.1 10^3/uL (0-0.7); Absolute Lymphocytes 1.6 10^3/uL (1.2-3.4); Absolute Monocytes 0.4 10^3/uL (0.1-0.6); Hematocrit 38.5 % (37.0-47.0); Hemoglobin 12.4 g/dL (12.0-16.0); Mean Corp Hgb Conc. 32.2 g/dL (33.0-37.0); Mean Corpuscular Hgb 31.6 pg (27.0-31.0); Mean Corpuscular Volume 98.2 fL (81.0-99.0); Mean Platelet Volume 9.3 fL (7.4-10.4); Platelet Count 310 10^3/uL (130-400); Red Blood Cell Count 3.92 10^6/uL (4.20-5.40); Red Cell Dist. Width 15.6 % (11.5-14.5); White Blood Cell Count 9.2 10^3/uL (4.8-10.8)
== END ==
LOC: OIDL 15:46
PROVIDERS: ATTENDING PHYSICIAN Internal Medicine Hematology & Oncology
DX: D50.9 Iron deficiency anemia, unspecified (principal)
CPT/HCPCS: 85025

== ENCOUNTER → 2024-07-18 10:09 | Outpatient (REF) | payer MEDICARE, OTHER, SELFPAY ==
[2024-07-18 12:27] LABS: % Basophils 0.5 % (0-2); % Eosinophils 0.8 % (0-6); % Immature Granulocytes 0.4 % (0-0.5); % Lymphocytes 13.4 % (20.5-51.1); % Monocytes 5.9 % (1.7-9.3); Absolute Eosinophils 0.1 10^3/uL (0-0.7); Absolute Monocytes 0.5 10^3/uL (0.1-0.6); Hematocrit 39.9 % (37.0-47.0); Mean Corp Hgb Conc. 32.6 g/dL (33.0-37.0); Mean Corpuscular Hgb 31.8 pg (27.0-31.0); Mean Corpuscular Volume 97.6 fL (81.0-99.0); Nucleated Red Blood Cells % 0 %; Platelet Count 248 10^3/uL (130-400); Red Blood Cell Count 4.09 10^6/uL (4.20-5.40); Red Cell Dist. Width 14.6 % (11.5-14.5); White Blood Cell Count 7.6 10^3/uL (4.8-10.8)
[2024-07-18 17:57] LABS: ALT (SGPT) 11 U/L (0-35); AST (SGOT) 17 U/L (14-36); Alkaline Phosphatase 79 U/L (38-126); Blood Urea Nitrogen 11 mg/dl (7-17); Calcium 8.3 mg/dl (8.4-10.2); Carbon Dioxide 28 mmol/L (22-30); Chloride 106 mmol/L (98-107); Glucose 105 mg/dl (70-99); HDL Cholesterol 50 mg/dl; Iron 62 ug/dl (37-170); LDL Cholesterol, Calculated 191 mg/dl; Potassium 4.3 mmol/L (3.5-5.1); Sodium 141 mmol/L (135-145); Total Bilirubin 0.3 mg/dl (0.2-1.3); Total Cholesterol 286 mg/dl (50-199); Total Protein 6.4 g/dl (6.3-8.2); Triglyceride 226 mg/dl (10-149); Very Low Density Lipoprotein 45 mg/dl (0-30); eGFR > 60.00
[2024-07-18 18:41] LABS: Percent Saturation 23 % (20-50); Total Iron Binding Capacity 261 ug/dl (265-497)
== END ==
LOC: HWLAB 10:09
PROVIDERS: ATTENDING PHYSICIAN Nurse Practitioner Acute Care; FAMILY PHYSICIAN Emergency Medicine; REFERRING PHYSICIAN Psychiatry & Neurology Forensic Psychiatry
DX: D50.9 Iron deficiency anemia, unspecified (principal); K25.3 Acute gastric ulcer without hemorrhage or perforation; M25.551 Pain in right hip; D64.9 Anemia, unspecified; E55.9 Vitamin D deficiency, unspecified; Z79.899 Other long term (current) drug therapy
CPT/HCPCS: 36415; 80053; 80061; 82728; 83036; 83540; 83550; 85025

== ENCOUNTER → 2024-09-05 12:08 | Outpatient (REF) | payer MEDICARE, OTHER, SELFPAY ==
[2024-09-05 15:50] LABS: % Basophils 0.5 % (0-2); % Eosinophils 0.9 % (0-6); % Immature Granulocytes 0.6 % (0-0.5); % Lymphocytes 16.9 % (20.5-51.1); % Monocytes 5.4 % (1.7-9.3); % Neutrophils 75.7 % (42.2-75.2); Absolute Basophils 0.1 10^3/uL (0-0.2); Absolute Eosinophils 0.1 10^3/uL (0-0.7); Absolute Immature Granulocytes 0.1 10^3/uL (0-0.05); Absolute Lymphocytes 1.8 10^3/uL (1.2-3.4); Absolute Monocytes 0.6 10^3/uL (0.1-0.6); Absolute Neutrophils 7.8 10^3/uL (1.4-6.5); Hematocrit 44.6 % (37.0-47.0); Hemoglobin 14.5 g/dL (12.0-16.0); Mean Corp Hgb Conc. 32.5 g/dL (33.0-37.0); Mean Corpuscular Hgb 30.9 pg (27.0-31.0); Mean Corpuscular Volume 95.1 fL (81.0-99.0); Mean Platelet Volume 10.3 fL (7.4-10.4); Nucleated Red Blood Cells % 0 %; Platelet Count 309 10^3/uL (130-400); Red Blood Cell Count 4.69 10^6/uL (4.20-5.40); Red Cell Dist. Width 14.6 % (11.5-14.5); White Blood Cell Count 10.4 10^3/uL (4.8-10.8)
[2024-09-05 16:01] LABS: Iron 89 ug/dl (37-170)
[2024-09-05 16:12] LABS: Percent Saturation 25 % (20-50); Total Iron Binding Capacity 344 ug/dl (265-497)
[2024-09-05 16:41] LABS: Ferritin 27.4 ng/ml (11.1-264.0)
== END ==
LOC: HWRAD 12:08
PROVIDERS: ATTENDING PHYSICIAN Internal Medicine; FAMILY PHYSICIAN Emergency Medicine; REFERRING PHYSICIAN Internal Medicine Hematology & Oncology
DX: Z87.891 Personal history of nicotine dependence (principal); D50.9 Iron deficiency anemia, unspecified; K25.3 Acute gastric ulcer without hemorrhage or perforation; M25.551 Pain in right hip; D64.9 Anemia, unspecified; E55.9 Vitamin D deficiency, unspecified
CPT/HCPCS: 36415; 71271; 82728; 83540; 83550; 85025

== ENCOUNTER 2024-09-19 07:21 | Day surgery (SDC) | payer MEDICARE, OTHER, SELFPAY ==
[2024-09-13 14:10] VITALS: BMI 30.7
--- NOTE | 2024-09-13 14:18 | PTCARENOTE ---
Pt's preop EKG shows inferior infarct, age undetermined. See EKG in EMR dated 08/18/22 showing prior history.
[2024-09-19] VITALS (9 sets, daily range): BP systolic 140–167; BP diastolic 70–100; BMI 30.7
--- NOTE | 2024-09-19 15:30 | SUR.PHASEI ---
1530 Daughter brought back to PACU to be by mom's side when made rounds to give pt update on procedure findings.
[2024-09-19] MEDS: DILAUDID 0.25 MG IV (15:59)
--- NOTE | 2024-09-19 16:20 | SUR.PHASEI ---
1605 Pt agitated, wants to use a bathroom, upset she is on bedpan. Re-educated that she received a narcotic at 1559 and unable to ambulate to bathroom. Privacy provided, assisted to side of bed to help with voiding. Still unable to go. At 1615
removed monitor and this RN transported pt to bathroom over in SDS and report given to Shannan in same day department. Pt able to void in bathroom. Daughter brought to bedside.
== END 2024-09-19 17:07 | disposition home or self-care (01) ==
LOC: GI 07:21
PROVIDERS: ATTENDING PHYSICIAN Internal Medicine Critical Care Medicine
DX: C34.12 Malignant neoplasm of upper lobe, left bronchus or lung (principal); R06.02 Shortness of breath; R91.8 Other nonspecific abnormal finding of lung field; J98.4 Other disorders of lung
CPT/HCPCS: 31629; 31652; 31624; 31623; 31627; 31654; 88173; 88305; 71045; 76000; 87070; 87102; 87116; 87205; 88112; 88341; 88342; 94640; C1887

== ENCOUNTER → 2024-09-21 16:01 | Outpatient (REF) | payer MEDICARE, OTHER, SELFPAY | LOC: RAD 16:01 | PROVIDERS: ATTENDING PHYSICIAN Emergency Medicine | DX: R05.1 Acute cough (principal) | CPT/HCPCS: 71046 ==